=== PATIENT | male | born 1965 | race Caucasian/White ===

== ENCOUNTER → 2017-11-17 09:51 | Outpatient (CLI) | payer OTHER, SELFPAY ==
[2017-11-17 11:55] LABS: Absolute Lymphocyte Count 2.09 X10^3/ul (0.83-4.51); Absolute Neutrophil Count 6.1 X10^3/uL (2.0-7.7); Basophil# 0.07 X10^3/uL; Basophil% 0.7 % (0-1); Eosinophil# 0.29 X10^3/uL; Eosinophils% 3.1 % (0-5); Hematocrit 50.3 % (40-54); Hemoglobin 16.4 g/dl (13.0-16.5); Lymphocyte # 2.09 X10^3/ul (4.0); Lymphocyte % 22.4 % (19-41); Mean Corp Hgb Conc 32.6 g/gl (32-36); Mean Corpuscular Hgb 32.1 pg (27.0-32.0); Mean Corpuscular Volume 98.4 fL (80-94); Mean Platelet Vol. 10.6 fl (6.2-12.0); Monocyte% 7.5 % (0-10); Neutrophil % 65.3 % (47-70); POSITIVE COUNT NO; POSITIVE DIFFERENTIAL NO; POSITIVE MORPHOLOGY NO; Platelet Count 256 K/mm3 (150-450); RBC Distribution Width CV 13.8 % (11.6-14.6); RBC Distribution Width SD 49.4 fl (35.1-43.9); Red Blood Count 5.11 M/mm3 (4.6-6.2); White Blood Count 9.3 K/mm3 (4.4-11.0)
[2017-11-17 12:12] LABS: Color, Urine Yellow (Yellow); Glucose, Dipstick Normal (Normal); Ketone-Dipstick Negative (Negative); Leukocyte Esterase-Dipstick Negative /ul (Negative); Nitrite-Dipstick Negative (Negative); Occult Blood-Urine 10 /ul (Negative); Protein-Dipstick Negative (Negative); Urine Bilirubin Dipstick Negative (Negative); Urine Clarity Clear (Clear); Urine Urobilinogen Normal (Normal)
[2017-11-17 12:31] LABS: ALB/GLOB Ratio 0.9 RATIO (0.9-2.4); AST(SGOT) 28 U/L (15-37); Alanine Aminotransfer ALT/SGPT 45 U/L (16-61); Albumin, Serum 3.8 g/dL (3.2-5.0); Alkaline Phosphatase 90 U/L (45-117); Anion Gap 10 (5-15); BUN 22 mg/dL (7-18); BUN/Creat Ratio 23.2 RATIO (10-20); Calcium,Total 9.1 mg/dL (8.5-10.1); Chloride 106 mmol/L (98-107); Cholesterol 162 mg/dL (200); Creatinine, Serum 0.95 mg/dL (0.70-1.30); EST Glomerular Filtration Rate 88 mL/min (>60); Est Glom Filt Rate - Afr Amer 107 mL/min (>60); Globulin 4.1 g/dL (2.2-4.2); Glucose 86 mg/dL (74-106); High Density Lipoprotein 31 mg/dL; PSA,Total - Annual Screen 0.66 ng/mL (0.00-4.00); Protein, Total 7.9 g/dL (6.4-8.2); Sodium Level 142 mmol/L (136-145); Triglycerides 129 mg/dL; Very Low Density Lipoprotein 26 mg/dL (5-40)
[2017-11-21 08:10] LABS: Testosterone, Total 208 ng/dL (264-916)
== END ==
PROVIDERS: Family Provider Family Medicine; PCP Family Medicine; Visit Provider Family Medicine
DX: Z00.00 Encounter for general adult medical examination without abnormal findings (principal); I10 Essential (primary) hypertension; E78.5 Hyperlipidemia, unspecified; E29.1 Testicular hypofunction; Z12.5 Encounter for screening for malignant neoplasm of prostate
CPT/HCPCS: 36415; 80053; 80061; 81002; 84153; 84402; 84403; 85025; G0103

== ENCOUNTER → 2018-07-15 | Outpatient (CLI) | payer OTHER, SELFPAY ==
[2018-07-15 12:48] LABS: AST(SGOT) 27 U/L (15-37); Alanine Aminotransfer ALT/SGPT 39 U/L (16-61); Albumin, Serum 3.6 g/dL (3.2-5.0); Alkaline Phosphatase 96 U/L (45-117); Bilirubin, Direct 0.07 mg/dL (0.00-0.30); Cholesterol 139 mg/dL (200); Globulin 4.2 g/dL (2.2-4.2); High Density Lipoprotein 30 mg/dL; Protein, Total 7.8 g/dL (6.4-8.2); Triglycerides 108 mg/dL; Very Low Density Lipoprotein 22 mg/dL (5-40)
[2018-07-18 14:06] LABS: Testosterone, Free 6.56 ng/dL (5.00-21.00)
[2018-07-19 08:23] LABS: Testosterone, % Free 2.41 % (1.50-4.20); Testosterone, Total 272 ng/dL (264-916)
== END | disposition home or self-care (01) ==
LOC: MTLAB 09:32
PROVIDERS: Family Provider Family Medicine; PCP Family Medicine; Referring Provider Family Medicine; Visit Provider Family Medicine
DX: I10 Essential (primary) hypertension (principal); E78.5 Hyperlipidemia, unspecified; E29.1 Testicular hypofunction
CPT/HCPCS: 36415; 80061; 80076; 84402; 84403

== ENCOUNTER 2018-08-22 12:34 | Inpatient (IN) | payer OTHER, SELFPAY ==
[2018-08-22] VITALS (27 sets, daily range): BP systolic 98–155; BP diastolic 52–92; PULSE 79–111; RESP 17–32; TEMP 36.6–36.8; O2SAT 94–99; BMI 47.1; BMI 45.4
--- NOTE | 2018-08-22 12:54 | RAD_ITS ---
STUDY: X-RAY CHEST REASON FOR EXAM: Male, 53 years old. Chest pain TECHNIQUE: AP COMPARISON: None. FINDINGS: EKG leads project over the chest. The lungs are clear but under expanded. There is no demonstrated pleural abnormality. Normal size heart. Normal mediastinum and suresh. Normal visualized pulmonary arteries. Normal visualized aortic arch and descending thoracic aorta. Normal visualized thoracic spine. Normal visualized ribs, clavicles, and shoulders. There is no demonstrated abnormality of the visualized soft tissue structures of the upper abdomen. RAD/Chest 1 View (Portable) IMPRESSION: Nonacute portable x-ray examination of the chest. Electronically Signed: Heladio Candelario MD at 13:41 EDT , Service support ,
--- NOTE | 2018-08-22 12:54 | EKG12_ITS ---
Test Reason : AM Blood Pressure : / mmHG Vent. Rate : 097 BPM Atrial Rate : 097 BPM P-R Int : 182 ms QRS Dur : 092 ms QT Int : 360 ms P-R-T Axes : 054 017 -04 degrees QTc Int : 457 ms Normal sinus rhythm Inferior infarct , age undetermined , cannot be excluded Abnormal ECG Confirmed by RAQUEL THOMPSON, FELICITY ([id number]), restaurant expeditor OLIVIA VASQUES ([id number]) on 08/26/2018 12:45:59 PM Referred By: CECELIA Confirmed By:FELICITY GARCÍA MD
[2018-08-22] MEDS: Nitroglycerin Oint 1 INCH PACKET TRANSDERM. (12:58)
[2018-08-22] MEDS: 0.9% Normal Saline 1,000 ML 150 ML IV (13:04)
[2018-08-22 13:18] LABS: Absolute Lymphocyte Count 1.69 X10^3/ul (0.83-4.51); Absolute Neutrophil Count 9.6 X10^3/uL (2.0-7.7); Basophil# 0.05 X10^3/uL; Basophil% 0.4 % (0-1); Eosinophil# 0.12 X10^3/uL; Hematocrit 53.6 % (40-54); Hemoglobin 17.6 g/dl (13.0-16.5); Lymphocyte # 1.69 X10^3/ul (4.0); Lymphocyte % 13.7 % (19-41); Mean Corp Hgb Conc 32.8 g/gl (32-36); Mean Corpuscular Hgb 32.5 pg (27.0-32.0); Mean Corpuscular Volume 99.1 fL (80-94); Mean Platelet Vol. 10.2 fl (6.2-12.0); Monocyte# 0.83 X10^3/uL; Monocyte% 6.7 % (0-10); Neutrophil # 9.62 X10^3/uL (2.7-7.7); Neutrophil % 77.7 % (47-70); Platelet Count 227 K/mm3 (150-450); RBC Distribution Width CV 14.9 % (11.6-14.6); RBC Distribution Width SD 53.9 fl (35.1-43.9); Red Blood Count 5.41 M/mm3 (4.6-6.2); White Blood Count 12.4 K/mm3 (4.4-11.0)
[2018-08-22 13:19] LABS: POSITIVE COUNT NO; POSITIVE DIFFERENTIAL NO; POSITIVE MORPHOLOGY NO
--- NOTE | 2018-08-22 13:20 | ED.DCSUM_ITS ---
- ER Visit Summary Date of Service: 08/22/18 Chief Complaint: [Chest pain] History of Present Illness: The patient is a 53 M [presents to the emergency department with complaint of chest pain that started this morning around 7 AM. Patient described a severe pain in the center of his chest that he felt short of breath with. Patient states that it was a tightness and just a hard pain. Patient at times has been having pain into his neck. Patient complains of exertional dyspnea. Patient's states that in the last 3 months has had multiple similar episodes like this. Patient does have a history of hypertension, high cholesterol, smoking history, and significant family history of heart disease and that his father at age of 54 of a heart attack. Patient denies recent travel or surgery. Patient states that this morning he was at a [employer] and they wanted to drive back home before coming to the emergency department. Patient last had a stress test about 3 years ago and was unremarkable.] Physical Examination: [HEENT-PERRLA, EOMI. Cranial nerves II through XII grossly intact. TMs clear. Mucous membranes moist. No adenopathy. Cardiovascular-regular rate and rhythm without murmur or ectopy Lungs-clear to auscultation, chest wall stable without crepitus or subcu emphysema Abdomen-normoactive bowel sounds, soft, nontender, no rebound or rigidity, no peritoneal signs. Extremities-intact ?4, normal range of motion, normal pulses, atraumatic] Test Results: [EKG obtain a regular sinus tachycardia with a ventricular rate of 113 bpm with questionable old inferior infarct. When compared with prior EKG from 2011 no significant new changes noted.] Chest x-ray was unremarkable. CBC with differential showed a white count of 12.4, hemoglobin 17.6, hematocrit 54, platelet 27. Chemistries unremarkable. Troponin 6.68. D-dimer was less than 0.27. Emergency Department Course and Treatment: [After discussion with cardiology patient was started on Brilinta as well as heparin drip and metoprolol.] Treatment Plan: [Admit for further work-up and treatment of non-ST elevation [place]] Disposition: [Admit] Impression: [Acute coronary syndrome Non-ST elevation [place]] This note was generated with [employer] software. It may contain incorrect words, spelling, and punctuation that were not noted in review of the chart prior to signing ED Disposition - Plan for ED Patient: Referrals: Roger Curtis MD [Primary Care Provider] -
[2018-08-22 13:29] LABS: D-Dimer Quantitative (DVT/PE) < 0.27 FEU/ug/m (0.27-0.49)
[2018-08-22 13:54] LABS: Anion Gap 5 (5-15); BUN 18 mg/dL (7-18); BUN/Creat Ratio 17.8 RATIO (10-20); Calcium,Total 8.6 mg/dL (8.5-10.1); Chloride 106 mmol/L (98-107); Creatinine, Serum 1.01 mg/dL (0.70-1.30); EST Glomerular Filtration Rate 82 mL/min (>60); Est Glom Filt Rate - Afr Amer 99 mL/min (>60); Estimated Creatinine Clearance 75.45 ml/min; Glucose 131 mg/dL (74-106); Potassium 4.2 mmol/L (3.5-5.1); Sodium Level 142 mmol/L (136-145)
--- NOTE | 2018-08-22 13:54 | ED.RN ---
lab resulted trop 6.68, physician notified
[2018-08-22] MEDS: Metoprolol Tartrate 25 MG Tablet PO ×2 (14:56→21:47)
[2018-08-22] MEDS: HEPARIN/D5w 25,000 UNITS 25,000 UNITS/250 ML IV.SOLN. 17 UNITS IV (14:56)
[2018-08-22] MEDS: TICAGRELOR 90 MG TABLET 180 MG PO (14:56)
[2018-08-22] MEDS: Heparin Injection (Vial) 5,000 UNIT/ML VIAL 10500 UNIT IV (14:56)
--- NOTE | 2018-08-22 15:06 | PCM.HP.STD ---
Problem List (1) NSTEMI (non-ST elevated myocardial infarction) Status: Acute History of Present Illness Date of Admission: 08/22/18 Chief Complaint: chest pain The patient is a 53 year old M presents with chest pain. Chest pain began yesterday, he was in a casino in [place]. Was diaphoretic and short of breath. Went back to his routine room and passed out per his 's description. Again recurred today and instead of going to the hospital locally would be brought over to [facility] [place] so they drove straight to. In the emergency room, patient was found to have an EKG that had some inferior Q waves but no other acute changes. D-dimer was normal, troponin was 6.68. Dr. Calvo, cardiology, was contacted and advised heparin drip process Balint on patient received 180 mg of Brilinta in the emergency room. Additionally he received nitroglycerin. Feeling better at this time. Patient states that he has been having some intermittent chest pain that is not necessarily extruded associated with exertion but far less severe. Has not sought attention for this previously. [] Past Medical History Medical History: Medical History (Last Updated 08/22/18 @ 15:08 by Akira Torres DO) RAMESH (obstructive sleep apnea) G47.33 HTN (hypertension) I10 Allergies No Known Allergies Allergy (Verified 08/22/18 12:42) Home Medications: Ambulatory Orders Medication Instructions Recorded Lisinopril/Hydrochlorothiazide 1 tab PO DAILY 08/22/18 [Lisinopril-Hctz 20-25 mg Tab] Naproxen 500 mg PO DAILY 08/22/18 Simvastatin 80 mg PO DAILY 08/22/18 Tamsulosin HCl [Flomax] 0.4 mg PO DAILY 08/22/18 traMADol [Ultram] 50 mg PO DAILY 08/22/18 Psychiatric History: No pertinent psych hx Smoking Status: Heavy Smoker (>10/day) Tobacco Use: Cigarettes - *Family History Maternal History Items: Cancer Paternal History Items: Heart Disease Review of Systems Constitutional: Reports: Malaise. Denies: Anorexia, Chills, Fever, Night Sweats Eyes: Denies: Blurred vision, Double vision HEENT: Denies: Head Aches, Sinus Congestion, Sinus Drainage Cardiovascular: Reports: Chest Pain, Edema Respiratory: Reports: Shortness of Breath. Denies: Cough, Sputum production Gastrointestinal: Reports: Nausea. Denies: Abdominal Pain, Vomiting Genitourinary: Denies: Dysuria Musculoskeletal: Denies: Joint Pain, Joint Tenderness Skin: Denies: Rash, Wounds Neurological: Denies: Numbness, Tingling, Focal weakness Psychiatric: Denies: Anxiety, Depression Endocrine: Denies: Change in Body Habitus, Heat/ Cold Intolerance Hematologic/ Lymphatic: Denies: Easy Bruising, Easy Bleeding, Hx of blood clot Comment: Patient states that he previously was getting some right-sided neck pain that would be associated with chest pain. A 10 point review of systems were negative except as mentioned in the history of present illness and the other review of systems. VTE Information - Inpt Only VTE Present on Admission: No VTE Mechan Device Prophylaxis: None VTE Pharm Prophylaxis ordered?: No Reason prophylaxis not ordered:: Procedure Not Indicated Patient Problems: Active and Suspected Problems NSTEMI (non-ST elevated myocardial infarction) (Acute) - Physical Exam General: Alert, Oriented x3, Cooperative, No apparent distress HEENT: Atraumatic, PERRLA, EOMI, Normocephalic Oral: Moist Mucosa, No Gingival or Mucosal Lesions/ Ulcerations Neck: No Nodes, Thyroid Normal Size and Texture Lungs: Clear to auscultation, Normal air movement, No rhonchi, No wheeze, No rales Cardiovascular: Regular rate, Regular Rhythm, Normal S1, Normal S2, No murmurs Abdomen: Bowel Sounds Present, Soft, Non Tender, Non-Distended, No Hepato-splenomegaly Extremities: No edema, No Calf Tenderness Skin: - - Rash on medial right leg with some superficial buenrostro. No active cellulitis Musculoskeletal: No Tenderness to Palpation of Joints or Extremities Neurological: Deep Tendon Reflexes 2+/4 and Symmetrical, Muscle tone normal, - - No clonus Psych/Mental Status: Normal Affect, Appropriate Vital Signs Temp Pulse Resp BP Pulse Ox 36.6 C 100 32 H 116/77 95 08/22/18 12:35 08/22/18 13:54 08/22/18 13:54 08/22/18 13:54 08/22/18 13:54 Oxygen Flow Rate (L/min) 2 Oxygen Delivery Method Nasal Cannula Weight: 132.4 kg Body Mass Index (BMI) 47.1 Laboratory Tests Past 24 Hrs 08/22/18 08/22/18 08/22/18 12:54 12:54 12:54 WBC 12.4 H RBC 5.41 Hgb 17.6 H Hct 53.6 MCV 99.1 H MCH 32.5 H MCHC 32.8 RDW 14.9 H RDW Differential 53.9 H Plt Count 227 MPV 10.2 Immature Gran % (Auto) 0.500 Neut % (Auto) 77.7 H Lymph % (Auto) 13.7 L Carlton % (Auto) 6.7 Eos % (Auto) 1.0 Baso % (Auto) 0.4 Absolute Neuts (auto) 9.6 H Absolute Lymphs (auto) 1.69 Total Counted Not Reportable D-Dimer Quant (PE/DVT) < 0.27 L Sodium 142 Potassium 4.2 Chloride 106 Carbon Dioxide 31.0 Anion Gap 5 BUN 18 Creatinine 1.01 Estim Creat Clear Calc 75.45 Est GFR (MDRD) Af Amer 99 Est GFR (MDRD) Non-Af 82 BUN/Creatinine Ratio 17.8 Glucose 131 H Calcium 8.6 Troponin I 6.680 H* EKG reviewed and showed normal sinus rhythm with inferior Q waves. No acute changes noted. Chest x-ray personally reviewed and showed poor story effort but no acute infiltrate nor edema. Possible cardiomegaly. Assessment/Plan All Active Problems NSTEMI (non-ST elevated myocardial infarction) (Acute) 1. Non-STEMI Patient is likely been having cardiac symptoms over the past month or so. Became worse last night. Heart score of 8 and a MARIO score of 3 Dr. Calvo has been contacted and advised heparin drip as well as Brilinta Patient is already on lisinopril with combination medication lisinopril HCTZ which will be continued. Patient received metoprolol in the emergency room and will continue with metoprolol 25 mg daily Patient already on atorvastatin 80 mg daily and will continue Cycle troponins. Check echocardiogram. Plan for left heart catheterization on August 24 unless symptoms worsen or his condition deteriorates then will be expedited at that time. 2. Hyperglycemia Blood sugar is 131 No known diabetes Given patient's risk factors, I will check an A1c and start patient on a sliding scale insulin with Accu-Cheks q. before meals and at bedtime 3. Hypertension Stable Continue his lisinopril/HCTZ 4. Obstructive sleep apnea Previously diagnosed but not treated Patient was to follow-up with Dr. Manzo as outpatient for further management 5. VTE prophylaxis: Low risk as patient is already anticoagulated on heparin. Whatever needs to be discontinued then risk factor stratification would actually be moderate risk and then either Lovenox or heparin would be indicated that time. Code Visit Inpatient E&M: 45829 Init Hosp L3
--- NOTE | 2018-08-22 15:08 | ECHOCS_ITS ---
Reason For Study: NSTEMI Procedure This was a 2D Doppler, Color Flow transthoracic echocardiogram. The study was technically difficult. Contrast injection was performed. Exam performed portable in patient room. Left Ventricle Normal LV size. Left ventricular systolic function is normal. The estimated ejection fraction is 70 %. Transmitral doppler flow suggestive of impaired relaxation of left ventricle. No regional wall motion abnormalities noted. Right Ventricle Normal RV size. Normal systolic function. Atria Normal left atrium. Normal right atrium. No doppler evidence for ASD. Mitral Valve There is no mitral annular calcification. Normal mitral valve. Mild (1+) eccentric mitral valve insufficiency. Tricuspid Valve Normal tricuspid valve. Trivial tricuspid valve insufficiency. Unable to estimate RV systolic pressure/pulmonary artery pressure due to technically difficult study. Aortic Valve Trisinus/trileaflet aortic valve. Normal aortic valve. Pulmonic Valve The pulmonic valve is not well visualized. Trivial pulmonic valve insufficiency. Great Vessels Normal sized aortic root. Pericardium/Pleural No pericardial effusion. Medication Diluted definity 2ml given slow IV push to enhance endocardial definition. MMode/2D Measurements & Calculations LVIDd: 4.8 cm IVSd: 1.3 cm Ao root diam: 3.8 cm LVIDs: 2.9 cm LVPWd: 1.2 cm LA dimension: 4.3 cm FS: 38.8 % Time Measurements MV dec time: 0.21 sec Doppler Measurements & Calculations MV E max wesley: 85.6 cm/sec Lat Peak E' Wesley: 9.2 cm/sec Med Peak E' Wesley: 8.5 cm/sec MV A max wesley: 104.3 cm/sec E/E' lat: 9.3 E/E' med: 10.1 MV E/A: 0.82 MV V2 max: 102.7 cm/sec MV P1/2t max wesley: 83.0 cm/sec Ao V2 max: 130.3 cm/sec MV max P.2 mmHg MV P1/2t: 53.9 msec Ao max P.8 mmHg MV V2 mean: 60.6 cm/sec MV mean P.7 mmHg MV dec slope: 451.6 cm/sec2 MV V2 VTI: 21.9 cm MVA(P1/2t): 4.1 cm2 LV V1 max: 124.3 cm/sec PA V2 max: 144.5 cm/sec LV V1 max P.2 mmHg Interpretation Summary The study was technically difficult. Contrast injection was performed. Left ventricular systolic function is normal. The estimated ejection fraction is 70 %. Mild (1+) eccentric mitral valve insufficiency. Trivial tricuspid valve insufficiency. Trivial pulmonic valve insufficiency. Unable to estimate RV systolic pressure/pulmonary artery pressure due to technically difficult study. Transmitral doppler flow suggestive of impaired relaxation of left ventricle Ordering Physician: Akira Torres Referring Physician: ADRIANA HAAS Performed By: Reji Toure RCS
[2018-08-22 15:51] LABS: Hemoglobin A1c 5.9 % (4.2-6.3)
--- NOTE | 2018-08-22 16:13 | EKG12_ITS ---
Test Reason : POST PCI Blood Pressure : / mmHG Vent. Rate : 090 BPM Atrial Rate : 090 BPM P-R Int : 186 ms QRS Dur : 092 ms QT Int : 362 ms P-R-T Axes : 057 020 -04 degrees QTc Int : 442 ms Normal sinus rhythm Inferior infarct , age undetermined , cannot be excluded Abnormal ECG Confirmed by RAQUEL THOMPSON, FELICITY ([id number]), market editor OLIVIA VASQUES ([id number]) on 08/26/2018 12:49:38 PM Referred By: KELSI Confirmed By:FELICITY GARCÍA MD
--- NOTE | 2018-08-22 16:49 | CON.PCM_ITS ---
Problem List (1) NSTEMI (non-ST elevated myocardial infarction) Status: Acute (2) HLD (hyperlipidemia) Status: Chronic (3) HTN (hypertension) Status: Chronic (4) Tobacco abuse Status: Chronic Reason for Consult Date of Consultation: 08/22/18 History of Present Illness: The patient is a 53 year old white male with a past medical history which is included underlying hyperlipidemia and hypertension who presents for evaluation of symptoms concerning for an accelerating angina pectoris with an acute coronary syndrome/non-ST segment elevation [place]. The patient has been having symptoms on and off for at least the last month. The symptoms have been at rest, at night, exertion. He is complained of chest tightness/pressure with associated shortness of breath/dyspnea, nausea, and diaphoresis. The symptoms have waxed and waned. He has not presented to his local physician or any emergency department for further evaluation. Yesterday he was at a casino in [place]. After yesterday evening's meal he had recurrent symptoms. He initially attributed his symptoms to indigestion. However the evening and night went on and into this morning he progressively worsened. His who is with him at this time states that he was holding his chest. She recommended they present to the local emergency department however he did not want to do so. He wanted to return to [place]. On the way to [place] he stopped to get something to eat at [facility]. He continued to have symptoms. By the time he arrived in [place] his recommended they go straight to the emergency department for further evaluation. In the emergency department he was noted to have an abnormal troponin I level of approximately 6.7. His initial ECG demonstrated sinus tachycardia with possible left atrial enlargement with an inferior IN pattern of indeterminate age. He had taken aspirin on his way to the hospital. He was treated medically with Brilinta, Nitropaste, oral metoprolol, and IV heparin. He had a repeat ECG which demonstrated similar type changes. He was placed in the PCU for further evaluation care. In the PCU he has continued to complain of chest tightness. He states overall he has not noted recurrent acute dyspnea, nausea, or diaphoresis. He had a repeat troponin I level which was reported at 12.9. His repeat ECG demonstrated similar type findings. He has denied acute orthopnea or PND or worsening peripheral pitting edema. There has been no near syncope or syncope reported. He claims to have never been diagnosed with any additional cardiovascular disease. He had an exercise tolerance test performed on 11-05-13. At that time he exercised on a Jeremy protocol for 8 minutes achieving 87% predicted maximal hear t rate with a peak blood pressure of 130/70 mmHg. He had no electrocardiographic changes or dysrhythmias reported. His nuclear imaging at the time was reported as negative. His gated LVEF was reported at 60%. Since admission he has also had a d-dimer which was negative. His chest x-ray was performed and reported no acute cardiopulmonary disease process. [] Past Medical History Allergies/Adverse Reactions: Allergies No Known Allergies Allergy (Verified 08/22/18 12:42) Home Medications: Ambulatory Orders Medication Instructions Recorded Lisinopril/Hydrochlorothiazide 1 tab PO DAILY 08/22/18 [Lisinopril-Hctz 20-25 mg Tab] Naproxen 500 mg PO DAILY 08/22/18 Simvastatin 80 mg PO QHS 08/22/18 Tamsulosin HCl [Flomax] 0.4 mg PO DAILY 08/22/18 Testosterone Cypionate 200 mg IM Q14D 08/22/18 traMADol [Ultram] 50 mg PO DAILY 08/22/18 Past Medical History (Chronic Problems): Chronic Problems (Last Updated 08/22/18 @ 15:08 by Akira Torres DO) HLD (hyperlipidemia) (Chronic) HTN (hypertension) (Chronic) Tobacco abuse (Chronic) Psychiatric History: No pertinent psych hx - *Family History Maternal History Items: Cancer Paternal History Items: Heart Disease Lives: Spouse/ Significant Other Smoking Status: Heavy Smoker (>10/day) Tobacco Use: Cigarettes Alcohol: Occasional Drugs: None Review of Systems - Review of Systems General: Denies: Fever, Night Sweats, Fatigue Cardiovascular: Reports: Chest Discomfort, Chest Discomfort at Rest, Chest Discomfort with Exertion, Shortness of Breath, Shortness of Breath at Rest, Shortness of Breath with Exertion, - - Diaphoresis. Denies: Orthopnea, PND, Peripheral Edema, Palpitations, Dizziness, Near Syncope, Syncope Respiratory: Reports: Shortness of Breath. Denies: Cough, Sputum Production, Hemoptysis Gastrointestinal: Reports: Nausea. Denies: Hematemesis, Hematochezia, Melena Genitourinary: Denies: Dysuria, Hematuria Skin: Denies: Rash Subjectve: This is a 53-year-old white male who the appearance of being uncomfortable in bed at this time. Objective: Vital Signs Temp Pulse Resp BP Pulse Ox 98.1 F 95 18 127/65 H 95 08/22/18 15:11 08/22/18 15:11 08/22/18 15:11 08/22/18 15:13 08/22/18 16:30 Oxygen Flow Rate (L/min) 1 Oxygen Delivery Method Nasal Cannula Weight: 290 lb 2.053 oz Body Mass Index (BMI) 45.4 General: Awake, Alert, Oriented x 3, Cooperative, No Acute Distress, Obese HEENT: Atraumatic, Normocephalic, PERRL, EOMI, Sclera Non Icteric Oral: Moist Mucosa Neck: Supple, Good ROM, No JVD Lungs: Clear to auscultation Cardiovascular: Regular Rhythm, Normal S1, Normal S2 Vascular: No Carotid Bruits Abdomen: Bowel Sounds Present, Soft, Non Tender Extremities: No Cyanosis, No Clubbing, Trace RLE Edema, Trace LLE Edema Neurological: No Focal Motor or Sensory Deficit Psych/Mental Status: Appropriate 08/22/18 12:54: WBC 12.4 H, RBC 5.41, Hgb 17.6 H, Hct 53.6, MCV 99.1 H, MCH 32.5 H, MCHC 32.8, RDW 14.9 H, RDW Differential 53.9 H, Plt Count 227, MPV 10.2, Immature Gran % (Auto) 0.500, Neut % (Auto) 77.7 H, Lymph % (Auto) 13.7 L, Terry % (Auto) 6.7, Eos % (Auto) 1.0, Baso % (Auto) 0.4, Absolute Neuts (auto) 9.6 H, Total Counted Not Reportable 08/22/18 12:54: Sodium 142, Potassium 4.2, Chloride 106, Carbon Dioxide 31.0, Anion Gap 5, BUN 18, Creatinine 1.01, Est GFR (MDRD) Af Amer 99, Est GFR (MDRD) Non-Af 82, BUN/Creatinine Ratio 17.8, Glucose 131 H, Calcium 8.6, Troponin I 6.680 H* 08/22/18 12:54: D-Dimer Quant (PE/DVT) < 0.27 L 08/22/18 12:54: Hemoglobin A1c 5.9 08/22/18 15:35: Troponin I 12.900 H* Rhythm: Sinus rhythm EKG: As noted above Stress Test: As noted above CXR: As noted above Assessment/Plan 1. Worsening angina pectoris/unstable angina/acute coronary syndrome/non-ST segment elevation IN At the present time the patient presents with findings of worsening angina pectoris/unstable angina pectoris and objective findings compatible with acute coronary syndrome/non-ST segment elevation IN. The patient has been placed in the PCU. He has continued to be followed by cardiac rhythm monitoring, laboratory studies, and ECG. He has been placed on medical management which has included antiplatelet therapy, anticoagulant therapy, nitrates, and beta blockers in addition to his lowering therapy and antihypertensive therapy. He continues with ongoing chest discomfort which he describes as chest tightness despite the aforementioned measures. At the present time status post review of his case it was recommended the patient be considered for cardiac catheterization sooner than later. The procedure and risks were discussed with him and he was agreeable to this approach. The patient's case is also been discussed with Dr. Carpenter of the interventional section of the [facility]. He agreed with the aforementioned evaluation and care plan. 2. Hyperlipidemia The patient will continue lipid-lowering therapy. 3. Hypertension The patient will continue and hypertensive therapy with adjustment as deemed appropriate. 4. Tobacco abuse The patient has been counseled on the necessity to discontinue his tobacco use. Comment: The patient's case is also been discussed with the patient's spouse as well as previously discussed with the [facility] emergency department staff. This note was generated with [employer]ut[employer] software. It may contain incorrect words, spelling, and punctuation that were not noted in checking the note before signing.
--- NOTE | 2018-08-22 17:01 | NURSING ---
The same bag of IV heparin that was started in ER, continues to infuse at 17ml/hr as per order.
[2018-08-22] MEDS: Nitroglycerin Infusion 250 ML 3 MG CONT INF (17:11)
--- NOTE | 2018-08-22 17:15 | NURSING ---
IV heparin discontinued at this time per verbal order from dr gee.
[2018-08-22 17:26] LABS: Bedside Glucose 103 mg/dL (70-110)
--- NOTE | 2018-08-22 19:43 | NURSING ---
REPORT CALLED TO KHADIJAH IN ICU
--- NOTE | 2018-08-22 19:51 | CL.D_ITS ---
Patient Name: ARIELLA SIMMONS Study Date: 08/22/2018 Performing: Nazario Calvo MD Ht: 67 inches 170 cm : 1965 Wt: 291.4 lbs 132 kg Age: 53 Gender: male BSA: 2.37 PROCEDURE(S) PERFORMED [id number] W OR WO PTCA, SINGLE CORONARY ARTERY CLINICAL PROFILE AND INDICATIONS Indications: Worsening Angina, ACS <= 24 hrs Heart Failure: None Stress/Imaging Stress/Image Study Performed: No Angina Classification Anginal Classification w/in 2 Weeks: CCS IV CAD Presentations: Non-STEMI. CONCLUSIONS Elevated Left Ventricular End Diastolic Pressure Normal LV size, wall motion,and systolic function LVEF: by LV gram 60 % Single vessel CAD of the LAD Comment: The cardiac catheterization procedure was started by Dr. Calvo. He obtained the initial vascular access and performed selective RCA arteriography. The remained of the cardiac catheterizatio n procedure was completed by Dr. Carpenter. He placed the long radial artery sheeth to provide suppor t to allow him to perform LCA arteriography and the left ventriculogram. RECOMMENDATIONS Risk factor modification Medical therapy Referred for immediate PCI DESCRIPTION OF PROCEDURE The patient arrived to the procedure lab. The risks and benefits of the procedure as well as a full d escription of our services here and current unavailability of surgical backup were fully explained to the patient and/or their significant other prior to the catheterization. The Timeout was completed, verifying the correct patient and procedure. The patient's procedural site was prepped and draped in the usual fashion. Local anesthetic was given subcutaneously to right radial region with Lidocaine 2% . Using a modified Seldinger technique, arterial access was obtained via the right radial artery, a 6 Fr sheath was inserted. Right Coronary Artery selective angiography was then performed in multiple v iews using a 5 Fr. JR 4 catheter. Left Coronary Artery selective angiography was performed in multipl e views using a 5 Fr. 4.0 Hobgood catheter, unsuccessful. Left Coronary Artery selective angiography wa s performed in multiple views using a 5 Fr. 4.0 Hobgood catheter, unsuccessful. Left Coronary Artery selective angiography was performed in multiple views using a 5 Fr. JL3.5 catheter. L eft Ventriculography was performed in HOUSER projection using a 5 Fr. Pigtail catheter. LV to AO pullbac k pressures were then recorded.The arterial sheath was pulled and a TR Band was applied for hemostasi s, 11cc of air CORONARY ANGIOGRAPHY DOMINANCE: Right Dominant LEFT HEART ASSESSMENT Left Ventricular Ejection Fraction: by LV Gram 60 % Normal LV wall motion Elevated Left Ventricular End Diastolic Pressure LVEDP: 17 mmHg LEFT MAIN: Angiographically normal LEFT ANTERIOR DESCENDING ARTERY: PROX LAD: Eccentric: Hazy: 50 - 75 % Stenosis CIRCUMFLEX ARTERY: Angiographically normal RIGHT CORONARY ARTERY: Angiographically normal VALVE FINDINGS: Normal Aortic Valve function Normal Mitral Valve function AORTIC ROOT: Angiographically normal COMPLICATIONS No Complications PROCEDURE MEDICATIONS Versed 1 mg IV Fentanyl 50 mcg IV Versed 1 mg IV Fentanyl 50 mcg IV Oxygen: 2 L/min via nasal cannula Oxygen: 3 L/min via nasal cannula Heparin diluted in 23cc Heparinized saline. Patient given 10cc IA of this solution. 08/22/2018 18:04: 42 Heparin diluted in 23cc Heparinized saline. Patient given 10cc IA of this solution. 08/22/2018 18:04: 42 Heparin 6000 unit(s) IV 08/22/2018 19:20:17 Nitro glycerin 25mg / 250ml D5W @ 5 mcg/min IV continued 08/22/2018 17:50:05 Nitro glycerin 25mg / 250ml D5W @ 0 mcg/min discontinued 08/22/2018 18:09:29 Verapamil 2.5mg, Ntg 100mcgs, 2000 units of Heparin diluted in 23cc Heparinized saline. Patient give n 10cc IA of this solution. 08/22/2018 18:04:42 Verapamil 2.5mg, Ntg 100mcgs, 2000 units of Heparin diluted in 23cc Heparinized saline. Patient give n 10cc IA of this solution. 08/22/2018 18:04:42 SUMMARY OF HEMODYNAMIC DATA Time AIR REST ECG 17:46:49 AO 87/62 (70) SA 18:09:11 AO 75/57 (65) 18:38:14 LV 113/2, 18 18:43:21 LV 110/1, 17 18:43:27 LVp 97/0, 10 18:43:54 AOp 99/68 (82) 18:43:59 LV 112/6, 19 19:14:26 LV 119/5, 21 19:14:33 LVp 95/5, 21 19:20:09 AOp 99/68 (83) 19:20:15 RM AIR REST 19:39:13 Signed By Nazario Calvo MD On 08/23/2018 9:33:56 AM Signed By Nazario Calvo MD On 08/22/2018 19:50:16 Nazario Calvo MD
--- NOTE | 2018-08-22 19:57 | CL.I_ITS ---
Patient Name: ARIELLA SIMMONS Study Date: 08/22/2018 Performing: Anam Carpenter MD Ht: 67 inches 170 cm : 1965 Wt: 291.4 lbs 132 kg Age: 53 Gender: male BSA: 2.37 PROCEDURE(S) PERFORMED [id number] W OR WO PTCA, SINGLE CORONARY ARTERY CLINICAL PROFILE AND CO-MORBIDITIES Indications: Worsening Angina, ACS <= 24 hrs Heart Failure: None Stress/Imaging Stress/Image Study Performed: No Angina Classification Anginal Classification w/in 2 Weeks: CCS IV CAD Presentations: Non-STEMI. CONCLUSIONS Successful PCI with Drug eluting stent and PTCA to the pLAD RECOMMENDATIONS LUCY Mullen for at least 12 months Follow up with Dr. Calvo Routine post interventional care DESCRIPTION OF PROCEDURE The patient arrived to the procedure lab. The risks and benefits of the procedure as well as a full d escription of our services here and current unavailability of surgical backup were fully explained to the patient and/or their significant other prior to the catheterization. The Timeout was completed, verifying the correct patient and procedure. The patient's procedural site was prepped and draped in the usual fashion. Local anesthetic was given subcutaneously to right radial region with Lidocaine 2% Using a modified Seldinger technique,arterial access was obtained via the right radial artery, a 6Fr sheath was inserted. Right Coronary Artery selective angiography was then performed in multiple view s using a 5 Fr. JR 4 catheter. Left Coronary Artery selective angiography was performed in multiple v iews using a 5 Fr. 4.0 Salmon catheter, unsuccessful. Left Coronary Artery selective angiography was p erformed in multiple views using a 5 Fr. 4.0 Salmon catheter, unsuccessful. Left Coronary Artery selective angiography was performed in multiple views using a 5 Fr. JL3.5 catheter. Left Ventr iculography was performed in HOUSER projection using a 5 Fr. Pigtail catheter. LV to AO pullback pressur es were then recorded. XB3 Guide catheter was inserted and engaged into the LCA. BMW Guide wire was advanced to the LAD. 4x12 Synergy Drug Eluting stent was inserted. Drug Eluting stent was advanced across the lesion in t he LAD, proximal. Angiogram performed post stent deployment. 5x8 NC Emerge Balloon catheter was inser sophie. Balloon catheter was inserted post stent. The arterial sheath was pulled and a TR Band was michael lied for hemostasis, 11cc of air INTERVENTION INFORMATION LESION SITE: LAD (Proximal) Lesion Complexity: High/C, chronic total occlusion: No, lesion at bifurcation: No, thrombus present: No, lesion length: 10 mm, culprit lesion: Yes, Previously treated lesion: No Pre Stenosis: 70 % Pre intervention MARIO flow: 3 PROCEDURE: Drug Eluting Stent with post dilatation Post Stenosis: 0 % Post intervention MARIO flow: 3 Lesion Devices: Cordis 6 Fr XB3.0 100cm Guide Catheter Briseno .014 BMW [place] Straight 190cm Olaf Sci Synergy MR KITTY 4.00x12 Olaf Sci NC EMERGE MR 5.00x08 BALLOON COMPLICATIONS No Complications PROCEDURE MEDICATIONS Versed 1 mg IV Fentanyl 50 mcg IV Versed 1 mg IV Fentanyl 50 mcg IV Oxygen: 2 L/min via nasal cannula Oxygen: 3 L/min via nasal cannula Heparin diluted in 23cc Heparinized saline. Patient given 10cc IA of this solution. 08/22/2018 18:04: 42 Heparin diluted in 23cc Heparinized saline. Patient given 10cc IA of this solution. 08/22/2018 18:04: 42 Heparin 6000 unit(s) IV 08/22/2018 19:20:17 Nitro glycerin 25mg / 250ml D5W @ 5 mcg/min IV continued 08/22/2018 17:50:05 Nitro glycerin 25mg / 250ml D5W @ 0 mcg/min discontinued 08/22/2018 18:09:29 Verapamil 2.5mg, Ntg 100mcgs, 2000 units of Heparin diluted in 23cc Heparinized saline. Patient give n 10cc IA of this solution. 08/22/2018 18:04:42 Verapamil 2.5mg, Ntg 100mcgs, 2000 units of Heparin diluted in 23cc Heparinized saline. Patient give n 10cc IA of this solution. 08/22/2018 18:04:42 SUMMARY OF HEMODYNAMIC DATA Time AIR REST ECG 17:46:49 AO 87/62 (70) SA 18:09:11 AO 75/57 (65) 18:38:14 LV 113/2, 18 18:43:21 LV 110/1, 17 18:43:27 LVp 97/0, 10 18:43:54 AOp 99/68 (82) 18:43:59 LV 112/6, 19 19:14:26 LV 119/5, 21 19:14:33 LVp 95/5, 21 19:20:09 AOp 99/68 (83) 19:20:15 RM AIR REST 19:39:13 Signed By Anam Carpenter MD On 08/22/2018 19:56:24 Anam Carpenter MD
[2018-08-22] MEDS: 0.9% Normal Saline 1,000 ML 100 ML IV (20:00)
--- NOTE | 2018-08-22 20:00 | EKG12_ITS ---
Test Reason : CP ADMISSION Blood Pressure : / mmHG Vent. Rate : 089 BPM Atrial Rate : 089 BPM P-R Int : 186 ms QRS Dur : 092 ms QT Int : 360 ms P-R-T Axes : 046 022 002 degrees QTc Int : 438 ms Normal sinus rhythm Possible Left atrial enlargement Inferior infarct , age undetermined , cannot be excluded Abnormal ECG Confirmed by RAQUEL THOMPSON, FELICITY ([id number]), editor magazine OLIVIA VASQUES ([id number]) on 08/26/2018 1:04:49 PM Referred By: MICHAEL Confirmed By:FELICITY GARCÍA MD
[2018-08-22] MEDS: TICAGRELOR 90 MG TABLET PO (21:47)
[2018-08-22] MEDS: Atorvastatin Calcium 40 MG Tablet PO (21:49)
[2018-08-22 22:00] LABS: Bedside Glucose 178 mg/dL (70-110)
[2018-08-23] VITALS (20 sets, daily range): BP systolic 103–133; BP diastolic 71–96; PULSE 73–110; RESP 16–31; TEMP 36.7–37.1; O2SAT 92–98
[2018-08-23 04:26] LABS: Absolute Lymphocyte Count 1.35 X10^3/ul (0.83-4.51); Absolute Neutrophil Count 8.1 X10^3/uL (2.0-7.7); Basophil# 0.04 X10^3/uL; Basophil% 0.4 % (0-1); Eosinophil# 0.23 X10^3/uL; Eosinophils% 2.1 % (0-5); Hematocrit 50.4 % (40-54); Hemoglobin 16.1 g/dl (13.0-16.5); Lymphocyte # 1.35 X10^3/ul (4.0); Lymphocyte % 12.3 % (19-41); Mean Corp Hgb Conc 31.9 g/gl (32-36); Mean Corpuscular Hgb 31.6 pg (27.0-32.0); Mean Corpuscular Volume 98.8 fL (80-94); Mean Platelet Vol. 10.1 fl (6.2-12.0); Monocyte# 1.15 X10^3/uL; Monocyte% 10.5 % (0-10); Neutrophil # 8.13 X10^3/uL (2.7-7.7); Neutrophil % 74.1 % (47-70); POSITIVE COUNT NO; POSITIVE DIFFERENTIAL NO; POSITIVE MORPHOLOGY NO; Platelet Count 200 K/mm3 (150-450); RBC Distribution Width CV 14.9 % (11.6-14.6)
[2018-08-23 04:52] LABS: AST(SGOT) 53 U/L (15-37); Alanine Aminotransfer ALT/SGPT 36 U/L (16-61); Alkaline Phosphatase 88 U/L (45-117); Anion Gap 7 (5-15); BUN 16 mg/dL (7-18); BUN/Creat Ratio 19.6 RATIO (10-20); Bilirubin, Direct 0.13 mg/dL (0.00-0.30); Calcium,Total 8.3 mg/dL (8.5-10.1); Chloride 109 mmol/L (98-107); Cholesterol 103 mg/dL (200); Creatinine, Serum 0.82 mg/dL (0.70-1.30); EST Glomerular Filtration Rate 105 mL/min (>60); Est Glom Filt Rate - Afr Amer 127 mL/min (>60); Estimated Creatinine Clearance 96.28 ml/min; Globulin 3.6 g/dL (2.2-4.2); Glucose 88 mg/dL (74-106); High Density Lipoprotein 28 mg/dL; Potassium 4.2 mmol/L (3.5-5.1); Protein, Total 6.6 g/dL (6.4-8.2); Sodium Level 143 mmol/L (136-145); Thyroid Stim Hormone (TSH) 0.73 uIU/mL (0.358-3.74); Triglycerides 115 mg/dL; Very Low Density Lipoprotein 23 mg/dL (5-40)
--- NOTE | 2018-08-23 05:55 | EKG12_ITS ---
Test Reason : CP Blood Pressure : / mmHG Vent. Rate : 113 BPM Atrial Rate : 113 BPM P-R Int : 172 ms QRS Dur : 096 ms QT Int : 312 ms P-R-T Axes : 052 012 004 degrees QTc Int : 427 ms Sinus tachycardia Possible Left atrial enlargement Inferior infarct , age undetermined Abnormal ECG When compared with ECG of 11-DEC-2010 18:16, Inferior infarct is now Present Confirmed by SAIRA THOMPSON, ALISHA ([id number]), image editor OLIVIA VASQUES ([id number]) on 09/01/2018 2:16:21 PM Referred By: JAMES/AP Confirmed By:ALISHA CHÁVEZ MD
[2018-08-23] MEDS: hydroCHLOROthiazide 25 MG Tablet PO (07:55)
[2018-08-23] MEDS: TICAGRELOR 90 MG TABLET PO ×2 (07:56→21:14)
[2018-08-23] MEDS: Lisinopril 20 MG Tablet PO (07:56)
[2018-08-23] MEDS: Tamsulosin HCl 0.4 MG Capsule PO (07:56)
[2018-08-23] MEDS: Metoprolol Tartrate 25 MG Tablet PO ×2 (07:56→21:14)
[2018-08-23 08:06] LABS: Bedside Glucose 89 mg/dL (70-110)
--- NOTE | 2018-08-23 09:34 | PN_ITS ---
Patient Problems: Active and Suspected Problems (Last Updated 08/22/18 @ 15:08 by Akira Torres DO) NSTEMI (non-ST elevated myocardial infarction) (Acute) Subjective: Follow-up on NSTEMI: Patient was seen and examined. He denied any chest pain or dizziness. Admitted last night with NSTEMI, status post cardiac cath, s/p stent to his LAD. No acute events overnight. Vitals/I&O's: Vital Signs Temp Pulse Resp BP Pulse Ox 98.4 F 86 24 H 124/94 H 96 08/23/18 04:00 08/23/18 09:00 08/23/18 09:00 08/23/18 09:00 08/23/18 09:00 Oxygen Flow Rate (L/min) 3 Oxygen Delivery Method Room Air Weight: 132 kg Body Mass Index (BMI) 45.4 Intake and Output for Last 24 Hours 08/21/18 08/22/18 08/23/18 23:59 23:59 23:59 Intake Total 926 / 926 954 / 954 Output Total 825 / 825 600 / 600 Balance 101 / 101 354 / 354 General: Alert, Oriented x3, Cooperative, No apparent distress - Obese, appears comfortable, not on oxygen, - HEENT: Atraumatic, PERRLA, EOMI, Normocephalic Oral: Moist Mucosa Neck: Supple Lungs: Clear to auscultation, Normal air movement Cardiovascular: Regular rate, No murmurs Abdomen: Bowel Sounds Present, Soft, Non Tender, Non-Distended, No Hepato- splenomegaly Extremities: No edema Skin: No rashes, No breakdown Musculoskeletal: No Tenderness to Palpation of Joints or Extremities Lymphatic: No Cervical, Supraclavicular, or Inguinal Adenopathy Neurological: Cranial nerves II-XII grossly intact, Neuro grossly intact Psych/Mental Status: Normal Affect, Appropriate Laboratory Results 08/22/18 12:54: WBC 12.4 H, RBC 5.41, Hgb 17.6 H, Hct 53.6, MCV 99.1 H, MCH 32.5 H, MCHC 32.8, RDW 14.9 H, RDW Differential 53.9 H, Plt Count 227, MPV 10.2, Immature Gran % (Auto) 0.500, Neut % (Auto) 77.7 H, Lymph % (Auto) 13.7 L, [place] % (Auto) 6.7, Eos % (Auto) 1.0, Baso % (Auto) 0.4, Absolute Neuts (auto) 9.6 H, Absolute Lymphs (auto) 1.69, Total Counted Not Reportable 08/22/18 12:54: Sodium 142, Potassium 4.2, Chloride 106, Carbon Dioxide 31.0, Anion Gap 5, BUN 18, Creatinine 1.01, Estim Creat Clear Calc 75.45, Est GFR (MDRD) Af Amer 99, Est GFR (MDRD) Non-Af 82, BUN/Creatinine Ratio 17.8, Glucose 131 H, Calcium 8.6, Troponin I 6.680 H* 08/22/18 12:54: D-Dimer Quant (PE/DVT) < 0.27 L 08/22/18 12:54: Hemoglobin A1c 5.9 08/22/18 15:35: Troponin I 12.900 H* 08/22/18 17:16: POC Glucose 103 08/22/18 21:53: POC Glucose 178 H 08/23/18 04:15: Sodium 143, Potassium 4.2, Chloride 109 H, Carbon Dioxide 27.0, Anion Gap 7, BUN 16, Creatinine 0.82, Estim Creat Clear Calc 96.28, Est GFR (MDRD) Af Amer 127, Est GFR (MDRD) Non-Af 105, BUN/Creatinine Ratio 19.6, Glucose 88, Calcium 8.3 L, Total Bilirubin 0.40, Direct Bilirubin 0.13, AST 53 H , ALT 36, Alkaline Phosphatase 88, Total Protein 6.6, Albumin 3.0 L, Globulin 3.6, Triglycerides 115, Cholesterol 103, LDL Cholesterol 52, VLDL Cholesterol 23, HDL Cholesterol 28 L, TSH 0.73 08/23/18 04:15: WBC 11.0, RBC 5.10, Hgb 16.1, Hct 50.4, MCV 98.8 H, MCH 31.6, MCHC 31.9 L, RDW 14.9 H, RDW Differential 54.0 H, Plt Count 200, MPV 10.1, Immature Gran % (Auto) 0.600, Neut % (Auto) 74.1 H, Lymph % (Auto) 12.3 L, [place] % (Auto) 10.5 H, Eos % (Auto) 2.1, Baso % (Auto) 0.4, Absolute Neuts (auto) 8.1 H, Absolute Lymphs (auto) 1.35, Total Counted Not Reportable 08/23/18 07:53: POC Glucose 89 Current Medications Acetaminophen (Tylenol) 650 mg PO Q6H PRN PRN PRN Reason: Mild pain 1-3/Temp > 100.7 F Albuterol Sulfate (Ventolin Aerosols) 2.5 mg INHALATION Q2H PRN PRN PRN Reason: SOB/Wheezing Aspirin (Aspirin, Baby) 81 mg PO DAILY@0800 [facility] Atorvastatin Calcium (Lipitor) 40 mg PO QHS [facility] Last Admin: 08/22/18 21:49 Dose: 40 mg Documented by: Atropine Sulfate () 0.5 mg IV UD PRN PRN Reason: HR <50 bpm Dextrose (D50w Syringe) 0 gm IV X1 PRN; Protocol PRN Reason: Hypoglycemia Docusate Sodium (Colace) 100 mg PO BID PRN PRN PRN Reason: Constipation Glucagon () 1 mg IM .X1 PRN PRN Reason: Hypoglycemia Heparin Sodium (Beef Lung) (Heparin 500 Unit/5 Ml (100/Ml)) 500 unit IV UD PRN PRN Reason: HEPARIN FLUSH Hydrochlorothiazide (Hctz) 25 mg PO DAILY [facility] Last Admin: 08/23/18 07:55 Dose: 25 mg Documented by: Sodium Chloride () 1,000 mls @ 0 mls/hr IV .Q0M FAY Sodium Chloride () 250 mls @ 15 mls/hr IV .[id number] PRN PRN Reason: SALINE FLUSH Insulin Human Lispro (Humalog Marlypen (Bkc)) 0 unit SC TIDAC [facility]; Protocol Last Admin: 08/23/18 07:54 Dose: Not Given Documented by: Labetalol HCl (Trandate) 5 mg IV X1 PRN PRN Reason: SBP > 160 when pulling sheath Stop: 08/24/18 19:50 Lisinopril (Zestril) 20 mg PO DAILY [facility] Last Admin: 08/23/18 07:56 Dose: 20 mg Documented by: Melatonin (Melatonin) 3 mg PO QHS PRN PRN PRN Reason: INSOMNIA Metoprolol Tartrate (Lopressor (Beta Mena)) 25 mg PO BID [facility] Last Admin: 08/23/18 07:56 Dose: 25 mg Documented by: Nicotine (Nicoderm Cq (Pbkc)) 21 mg TRANSDERM. DAILY [facility] Last Admin: 08/23/18 07:55 Dose: 21 mg Documented by: Nitroglycerin (Nitrostat) 0.4 mg SUBLINGUAL Q5M PRN PRN Reason: CARDIAC/CHEST PAIN Ondansetron HCl (Zofran) 4 mg IV Q8H PRN PRN PRN Reason: NAUSEA/VOMITING Sodium Chloride () 10 - 40 ml IV UD PRN PRN Reason: SALINE FLUSH Sodium Chloride () 500 ml IV BOLUS PRN PRN Reason: VASO-VAGAL PROTOCOL Tamsulosin HCl (Flomax) 0.4 mg PO DAILY@0830 [facility] Last Admin: 08/23/18 07:56 Dose: 0.4 mg Documented by: Throat Lozenges (Cepacol Sore Throat Lozenge) 1 lozenge MUCOUS MEM Q2H PRN PRN PRN Reason: Sore Throat/Cough Ticagrelor (Brilinta) 90 mg PO BID [facility] Last Admin: 08/23/18 07:56 Dose: 90 mg Documented by: Medical Necessity - Tobacco Use Smoking Status: Heavy Smoker (>10/day) Tobacco Use: Cigarettes Assessment/Plan All Active Problems (Last Updated 08/22/18 @ 15:08 by Akira Torres DO) NSTEMI (non-ST elevated myocardial infarction) (Acute) 53-year-old with past medical history of hypertension, hyperlipidemia comes in with chest pain and found to have NSTEMI. He underwent cardiac catheterization and is status post stent to his LAD. 1. NSTEMI, MARIO score 3, s/p cardiac cath, s/p KITTY to LAD, stable vitals, no events on telemetry, on aspirin, Brilinta, statin, lisinopril, metoprolol Continue to monitor on telemetry, further recommendations from cardiology. 2. Hypertension, on lisinopril, hydrochlorothiazide, metoprolol, continue same 3. Hyperlipidemia, on statin 4. BPH on Flomax 5. Morbid obesity, BMI 45.6, diet and exercise is recommended 6. DVT PPx- early ambulation Code Visit Inpatient E&M: 20596 Subs Hosp L2
--- NOTE | 2018-08-23 10:02 | PCM.PN.CARD ---
Subjectve: The patient is awake and alert. He denies any ongoing chest tightness since his cardiac catheterization/PCI procedure. He notes prior to his procedure, over the last month, he has been having right neck discomfort. He states since his procedure that symptom is absent as well. He notes overall he feels so much better now than he did prior to his procedure. Objective: Vital Signs Temp Pulse Resp BP Pulse Ox 98.4 F 86 24 H 124/94 H 96 08/23/18 04:00 08/23/18 09:00 08/23/18 09:00 08/23/18 09:00 08/23/18 09:00 Oxygen Flow Rate (L/min) 3 Oxygen Delivery Method Room Air Weight: 291 lb 0.163 oz Body Mass Index (BMI) 45.4 Intake and Output for Last 24 Hours 08/21/18 08/22/18 08/23/18 23:59 23:59 23:59 Intake Total 926 / 926 954 / 954 Output Total 825 / 825 600 / 600 Balance 101 / 101 354 / 354 General: Awake, Alert, Oriented x 3, Cooperative, No Acute Distress, Obese HEENT: Atraumatic, Normocephalic, PERRL, EOMI, Sclera Non Icteric Oral: Moist Mucosa Neck: Supple, Good ROM, No JVD Lungs: Clear to auscultation Cardiovascular: Regular Rhythm, Normal S1, Normal S2 Vascular: Normal Radial Pulses Abdomen: Bowel Sounds Present, Soft, Non Tender Extremities: Trace RLE Edema, Trace LLE Edema Neurological: No Focal Motor or Sensory Deficit Psych/Mental Status: Appropriate 08/22/18 12:54: WBC 12.4 H, RBC 5.41, Hgb 17.6 H, Hct 53.6, MCV 99.1 H, MCH 32.5 H, MCHC 32.8, RDW 14.9 H, RDW Differential 53.9 H, Plt Count 227, MPV 10.2, Immature Gran % (Auto) 0.500, Neut % (Auto) 77.7 H, Lymph % (Auto) 13.7 L, [place] % (Auto) 6.7, Eos % (Auto) 1.0, Baso % (Auto) 0.4, Absolute Neuts (auto) 9.6 H, Total Counted Not Reportable 08/22/18 12:54: Sodium 142, Potassium 4.2, Chloride 106, Carbon Dioxide 31.0, Anion Gap 5, BUN 18, Creatinine 1.01, Est GFR (MDRD) Af Amer 99, Est GFR (MDRD) Non-Af 82, BUN/Creatinine Ratio 17.8, Glucose 131 H, Calcium 8.6, Troponin I 6.680 H* 08/22/18 12:54: D-Dimer Quant (PE/DVT) < 0.27 L 08/22/18 12:54: Hemoglobin A1c 5.9 08/22/18 15:35: Troponin I 12.900 H* 08/23/18 04:15: Sodium 143, Potassium 4.2, Chloride 109 H, Carbon Dioxide 27.0, Anion Gap 7, BUN 16, Creatinine 0.82, Est GFR (MDRD) Af Amer 127, Est GFR (MDRD) Non-Af 105, BUN/Creatinine Ratio 19.6, Glucose 88, Calcium 8.3 L, Total Bilirubin 0.40, Direct Bilirubin 0.13, Triglycerides 115, Cholesterol 103, LDL Cholesterol 52, VLDL Cholesterol 23, HDL Cholesterol 28 L 08/23/18 04:15: WBC 11.0, RBC 5.10, Hgb 16.1, Hct 50.4, MCV 98.8 H, MCH 31.6, MCHC 31.9 L, RDW 14.9 H, RDW Differential 54.0 H, Plt Count 200, MPV 10.1, Immature Gran % (Auto) 0.600, Neut % (Auto) 74.1 H, Lymph % (Auto) 12.3 L, [place] % (Auto) 10.5 H, Eos % (Auto) 2.1, Baso % (Auto) 0.4, Absolute Neuts (auto) 8.1 H, Total Counted Not Reportable Rhythm: Sinus rhythm EKG: Sinus rhythm; inferior [place] of indeterminate age cannot be excluded; nonspecific T wave abnormality Medical Necessity - Tobacco Use Smoking Status: Heavy Smoker (>10/day) Tobacco Use: Cigarettes Assessment/Plan 1. Worsening angina pectoris/unstable angina/acute coronary syndrome/non-ST segment elevation [place]/CAD status post LAD PCI The patient appears to be symptomatically improved. He remains hemodynamically stable. He is continuing cardiac monitoring. He is continuing medical therapy with adjustment as deemed appropriate. He is pending further evaluation with a transthoracic echocardiogram to assess his overall left ventricular wall motion and systolic function. He will also need cardiac rehabilitation therapy. 2. Hyperlipidemia The patient will continue lipid-lowering therapy. 3. Hypertension The patient will continue and hypertensive therapy with adjustment as deemed appropriate. 4. Tobacco abuse The patient has been counseled on the necessity to discontinue his tobacco use. All, at the present time, the patient appears to be improved. He will be considered for transfer to the PCU for continued ongoing evaluation and care. Comment: The patient's case is also been discussed with the patient. This note was generated with [employer] dictation software. It may contain incorrect words, spelling, and punctuation that were not noted in checking the note before signing.
[2018-08-23] MEDS: Aspirin 81 MG TAB.CHEW PO (10:07)
[2018-08-23 11:21] LABS: Bedside Glucose 92 mg/dL (70-110)
[2018-08-23] MEDS: Atorvastatin Calcium 40 MG Tablet PO (21:14)
[2018-08-24] VITALS (9 sets, daily range): BP systolic 111–127; BP diastolic 59–75; PULSE 90–100; RESP 15–18; TEMP 36.6–36.9; O2SAT 94–96; BMI 45.5
[2018-08-24] MEDS: Metoprolol Tartrate 25 MG Tablet PO (08:23)
[2018-08-24] MEDS: Lisinopril 20 MG Tablet PO (08:23)
[2018-08-24] MEDS: Tamsulosin HCl 0.4 MG Capsule PO (08:23)
[2018-08-24] MEDS: TICAGRELOR 90 MG TABLET PO (08:23)
[2018-08-24] MEDS: Aspirin 81 MG TAB.CHEW PO (08:23)
[2018-08-24] MEDS: hydroCHLOROthiazide 25 MG Tablet PO (08:23)
--- NOTE | 2018-08-24 10:00 | EKG12_ITS ---
Test Reason : AM EKG Blood Pressure : / mmHG Vent. Rate : 099 BPM Atrial Rate : 099 BPM P-R Int : 178 ms QRS Dur : 090 ms QT Int : 338 ms P-R-T Axes : 051 028 006 degrees QTc Int : 433 ms Normal sinus rhythm Inferior infarct , age undetermined , cannot be excluded Poor R-wave progression Abnormal ECG Confirmed by RAQUEL THOMPSON, FELICITY ([id number]), make up editor OLIVIA VASQUES ([id number]) on 08/26/2018 12:36:13 PM Referred By: DR WEI Confirmed By:FELICITY GARCÍA MD
--- NOTE | 2018-08-24 10:50 | CASEMGMT ---
Living situation- SW met with patient and his . Introduced self and role at [facility]. Patient lives in a 2 story home with his . PCP: Dr Roger Curtis Specialists: None Pharmacy: [facility] DME: None ADL's/IADL's: Independent in all activities Past SNF/rehab: No Past HH: No LW: No POA: No Plan: Patient plans on returning home. He said he does not have prescription coverage through his insurance. His thinks he does. Patient said he gets his meds at [facility] and he gets a discount. Will watch for d/c meds to make sure they are affordable for patient. Camila MILIAN COMMERCIAL ACCOUNTANT
--- NOTE | 2018-08-24 11:01 | CRPHASE1 ---
Patient Communication Former Patient:: Phase I PHII Cardiac Rehab Discussed with Patient:: Yes Guide to Cardiac Rehab Given to Patient:: Yes Cardiac Rehab Facility Choice List Given to Patient:: Yes - [facility] Choice Program [facility] CR PHII:: Communication Given to CR Fiscal Economist:: Lino Carpenter PCP:: Roger Curtis Sessions:: 36 sessions - 3 days/wk, 12 weeks Risk Factors/Lifestyle Smoking Status: Current every day smoker Packs Smoked per Day: 1 Hx Hypertension: Yes - ON MEDS Hx Diabetes Mellitus Type 2: No Hx Obesity: Yes Height: 1.7 m Weight:: 131.6 kg BMI: 45.5 Stress: Long-standing ETOH: No Caffeine: Yes Substance Abuse: No Family History: Hypertension Laboratory Values: Cardiac Rehab Phase I Labs 5.9 % (4.2-6.3) 08/22/18 12:54 Triglycerides 115 mg/dL (-199) 08/23/18 04:15 Cholesterol 103 mg/dL (200) 08/23/18 04:15 52 mg/dL (0-130) 08/23/18 04:15 28 mg/dL (40-) L 08/23/18 04:15 Phase I Education Given On:: [place], Nutrition, Smoking cessation - GAVE HIS NAME TO MAY. Issues Affecting Care:: None Knowledge of Condition:: Yes Learning Preferences: Verbal Hospital Course Pain Description: Sharp Pain Intensity: 8 - 3 Cardiac Cath Date:: 08/22/18 Medical/Surgical History NM:: Yes Angina:: Yes Pulmonary:: Yes RAMESH:: Yes - BEING TEST LATER IN AUGUST Diabetes Type II:: No Hypertension:: Yes - ON MEDS Dyslipidemia:: Yes Discharge/Home/Social Eval Discharge Disposition: Home Marital Status: - Cardiac Rehabilitation Info Cardiac Rehabilitation Program Information: Cardiac Rehabilitation is important for patients like you who are recovering from a heart problem. Cardiac rehabilitation programs are recognized as integral to the continued care of the patient with coronary heart disease. The cardiac rehabilitation program is designed to optimize a patient's physical, psychological, and social functioning. Health critical care unit manager work in cardiac rehabilitation programs and assist you with getting the treatments you need to get stronger and healthier - like exercise, healthy eating habits, and medications. Cardiac rehabilitation has been show to help people with heart problems live longer and have better life enjoyment than people who do not go to cardiac rehabilitation. Please contact the Cardiac Rehabilitation Program at [facility] at in two weeks if you have not heard from them.
--- NOTE | 2018-08-24 11:06 | CRPH1.INSTRU ---
General Education CAD and cardiac anatomy and function:: Patient communicates acknowledgment Explanation of diagnoses and procedures:: Patient communicates acknowledgment Sign/Symptoms of [place]:: Patient communicates acknowledgment, Not instructed Antiplatelet therapy: Not instructed Emergency procedures and activation of EMS: Patient communicates acknowledgment Compliance of all prescribed medications: Needs reinforcement Smoking Patient Nicotine/Smoking Risk Factors Are:: Cigarettes Recommendations Include:: Smoking cessation strategies/Smoking packet, Participation in a smoking cessation program Nicotine/Smoking Response Code:: Patient communicates acknowledgment Dyslipidemia Patient Dyslipidemia Risk Factors Are:: Total Cholesterol - 103, Triglycerides - 115, HDL - 28, LDL - 23 Recommendations Include:: Lipid profile provided Dyslipidemia Response Code:: Patient communicates acknowledgment - ON MEDS Overweight/Obesity Patient Overweight/Obesity Risk Factors Are:: Overweight = 26-29 Overweight/Obesity:: Patient communicates acknowledgment Hypertension Recommendations Include:: Maintain BP <130/85 Hypertension:: Patient communicates acknowledgment - ON MEDS Heart Disease Patient Heart Disease Risk Factors Are:: Family history of heart disease < 65 years old Heart Disease Response Code:: Patient communicates acknowledgment Diabetes Patient Diabetes Risk Factors Are:: No documented hx of diabetes Metabolic Syndrome Patient Metabolic Syndrome Risk Factors Are [3 of 5]:: Hypertension Metabolic Syndrome Response Code:: Patient communicates acknowledgment Sedentary Patient Sedentary Risk Factors Are:: Lack of regular exercise Sedentary Response Code:: Patient communicates acknowledgment Stress Stress Response Code:: Patient communicates acknowledgment
--- NOTE | 2018-08-24 12:04 | PN.CARD_ITS ---
Subjectve: The patient states he continues to feel better overall. He has been up and ambulating. Objective: Vital Signs Temp Pulse Resp BP Pulse Ox 98.2 F 90 16 127/59 H 96 08/24/18 08:20 08/24/18 10:59 08/24/18 08:20 08/24/18 08:23 08/24/18 08:20 Oxygen Flow Rate (L/min) 3 Oxygen Delivery Method Room Air Weight: 290 lb 2.053 oz Body Mass Index (BMI) 45.4 Intake and Output for Last 24 Hours 08/22/18 08/23/18 08/24/18 23:59 23:59 23:59 Intake Total 926 / 926 2404 / 2604 200 / 200 Output Total 825 / 825 600 / 600 Balance 101 / 1804 / 2004 200 / 200 General: Awake, Alert, Oriented x 3, Cooperative, No Acute Distress, Obese HEENT: Atraumatic, Normocephalic, PERRL, EOMI, Sclera Non Icteric Oral: Moist Mucosa Neck: Supple, Good ROM, No JVD Lungs: Clear to auscultation Cardiovascular: Regular Rhythm, Normal S1, Normal S2 Vascular: No Carotid Bruits, Normal Radial Pulses Abdomen: Bowel Sounds Present, Soft, Non Tender Extremities: No edema Neurological: No Focal Motor or Sensory Deficit Psych/Mental Status: Appropriate Rhythm: Sinus rhythm EKG: Sinus rhythm; no new acute ECG changes ECHO: Pending Medical Necessity - Tobacco Use Smoking Status: Current every day smoker Tobacco Use: Cigarettes Assessment/Plan 1. Worsening angina pectoris/unstable angina/acute coronary syndrome/non-ST segment elevation [place]/CAD status post LAD PCI The patient appears to be symptomatically improved. He remains hemodynamically stable. He is continuing cardiac monitoring. He is continuing medical therapy with adjustment as deemed appropriate. He is pending further evaluation with a transthoracic echocardiogram to assess his overall left ventricular wall motion and systolic function. He will also need cardiac rehabilitation therapy. 2. Hyperlipidemia The patient will continue lipid-lowering therapy. 3. Hypertension The patient will continue and hypertensive therapy with adjustment as deemed appropriate. 4. Tobacco abuse The patient has been counseled on the necessity to discontinue his tobacco use. All, at the present time, the patient appears to be improved. If he remains stable and depending upon his transthoracic echocardiographic findings he may be able to be considered for release home with continued outpatient follow-up as noted above. Comment: The patient's case is also been discussed with the patient. This note was generated with [employer] dictation software. It may contain incorrect words, spelling, and punctuation that were not noted in checking the note before signing.
--- NOTE | 2018-08-24 13:26 | NURSING ---
wound photo: right medial lower leg
--- NOTE | 2018-08-24 13:54 | CASEMGMT ---
Addendum entered by Milind Ivy 08/24/18 15:57: 1500: Spoke with Dr Calvo re: pt's high co-pay. Dr Calvo states prefers for pt to be on the Brilinta for at least 30 days if possible and then he can discuss other affordable options with pt when he comes in for his follow-up appt. Spoke with pt and about [facility] RX assistance program for the Brilinta and they are agreeable to this. Discussed importance of taking Brilinta as prescribed and to make sure he talks with Dr Calvo about more affordable options when he goes in for the follow-up appt. Pt and made aware of importance of getting the new medication before running out of the Brilinta so that no doses are missed. Pt and voice understanding. Dr Mtz notified and e-scripted Brilinta to [facility] Retail pharmacy. BENJAMIN Jensen, made aware of need for [facility] Medication Assistance needed for Brilinta. Original Note: MARIEL LECHUGA NOTE: E-script has been sent to [facility] for Brilinta. Call placed to [facility] and Brilinta savings card applied. Pt's co-pay will be still be $169 per 30-day supply even with the savings card. To room to talk with pt and and they were made aware of co-pay. They state this is not affordable for them. Dr Mtz made aware and Dr Calvo paged. Clyde RED RN, CM
--- NOTE | 2018-08-24 14:05 | PCM.DC ---
- Discharge Diagnoses Current Active Problems: Current Active and Chronic Problems (Last Updated 08/22/18 @ 15:08 by Akira Torres DO) S/P coronary artery stent placement (Chronic ~08/22/18) PTCA/KITTY to prox LAD 08/22/18 Atherosclerotic heart disease of [place] coronary artery without angina pectoris (Chronic) NSTEMI (non-ST elevated myocardial infarction) (Acute) HLD (hyperlipidemia) (Chronic) HTN (hypertension) (Chronic) Tobacco abuse (Chronic) You will use the following diet at home:: Cardiac - low fat, low salt Your food should be the consistency of: Regular Your liquids should be the consistency of: Regular/Thin Discharge Activity: - - You may remove the dressing in 1 day. You may shower in 1 day. No sex for 10-14 days. Do not lift more than 10 pounds for the next 10-14 days. No strenuous activity. You may start a walking program and work up to 30 minutes daily 5-6 times a week. No hills. May shower in (days): 1 Call your doctor if you observe: Fever of 101 or Higher, Shortness of breath, Dizziness, Fainting spells, Swelling in the ankles, Chest pain, Calf discomfort, - - bleeding from the nose, mouth, penis, anus, large bruises Change Dressing in (Days):: 1 Instructions: Ticagrelor Oral tablet, Coronary Stents, Taking Blood Thinners After Percutaneous Coronary Intervention (PCI), Follow-up Appointment After Percutaneous Coronary Intervention (PCI), Lifestyle Management After Percutaneous Coronary Intervention (PCI), Exercising Safely After Percutaneous Coronary Intervention (PCI) Additional Instructions: I have given you a prescription for a nicotine patch. Testosterone and Nicotine is a potentially bad combination. Both of these things can increase the red blood cell count and when this happens it is call polycythemia. Polycythemia makes the blood thicker and it will clot more quickly than normal........causing strokes and heart attacks. It would be in your best interest to quit smoking. Allergies/Adverse Reactions: Allergies No Known Allergies Allergy (Verified 08/22/18 12:42) Medications to take at Discharge Lisinopril/Hydrochlorothiazide [Lisinopril-Hctz 20-25 mg Tab] 1 tab PO DAILY 08/22/18 Simvastatin 80 mg PO QHS 08/22/18 Tamsulosin HCl [Flomax] 0.4 mg PO DAILY 08/22/18 Testosterone Cypionate 200 mg IM Q14D 08/22/18 traMADol [Ultram] 50 mg PO DAILY 08/22/18 Aspirin [Aspirin, Baby] 81 mg PO DAILY@0800 tab.chew 08/24/18 Metoprolol Tartrate [Lopressor (beta jose luis)] 25 mg PO BID #60 tab 08/24/18 Nicotine [Nicoderm Cq] 21 mg TRANSDERM. DAILY #28 patch 08/24/18 Nitroglycerin (INPATIENT USE) [Nitrostat] 0.4 mg SUBLINGUAL Q5M PRN #1 bottle 08/24/18 Ticagrelor [Brilinta] 90 mg PO BID #60 tab 08/24/18 The following prescriptions were given: Ticagrelor [Brilinta] 90 mg PO BID #60 tab Transmission Status: Received by [facility] Metoprolol Tartrate [Lopressor (beta jose luis)] 25 mg PO BID #60 tab Transmission Status: Pending to [facility] Nicotine [Nicoderm Cq] 21 mg TRANSDERM. DAILY #28 patch Prescription Printed Nitroglycerin (INPATIENT USE) [Nitrostat] 0.4 mg SUBLINGUAL Q5M PRN #1 bottle PRN Reason: Cardiac/Chest Pain Transmission Status: Pending to [facility] Orders to be completed after discharge: Phase II, Outpatient Cardiac Rehab Location: None Selected Primary Care Physician: Roger Curtis MD [Primary Care Provider] - Please follow up with your Primary Care Physician in: 5-7 days Test Results: Test results from this visit will be discussed in further detail at your follow-up appointment, if applicable. Please Follow Up With: Nazario Calvo MD When: 1 week Proposed Discharge Date: 08/24/18
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
--- NOTE | 2018-08-24 14:20 | CASEMGMT ---
Addendum entered by Camila Dang 08/24/18 14:36: SW spoke with Betty in the pharmacy and they were able to use the 30 day free discount card for patient. Therefore, [facility] prescription assistance program is not needed. Camila SANCHEZ Original Note: SW utilized [facility] Prescription assistance program for Brillinta for patient. He has a high co-pay for the medication even with the discount card. MARIEL CM spoke with [employer] and it is preferred that the patient take Brillinta for 30 days after his heart attack. Once patient follows up with [employer] they can change the medication to something more affordable for patient. Camila SANCHEZ
== END 2018-08-24 15:16 | disposition home or self-care (01) | DRG 247 ==
LOC: ED 13:35 → PCU 14:33 → ICU 08-23 06:58 → PCU 08-23 23:29 → ICU 08-24 11:09 → PCU 08-24 11:09
PROVIDERS: Internal Medicine; Internal Medicine Cardiovascular Disease; Emergency Provider Emergency Medicine; Family Provider Family Medicine; PCP Family Medicine; Visit Provider Internal Medicine
DX: I21.4 Non-ST elevation (NSTEMI) myocardial infarction (principal); Z68.42 Body mass index [BMI] 45.0-49.9, adult; I10 Essential (primary) hypertension; F17.210 Nicotine dependence, cigarettes, uncomplicated; G47.33 Obstructive sleep apnea (adult) (pediatric); E78.5 Hyperlipidemia, unspecified; N40.0 Benign prostatic hyperplasia without lower urinary tract symptoms; E66.01 Morbid (severe) obesity due to excess calories; I25.110 Atherosclerotic heart disease of native coronary artery with unstable angina pectoris; Z82.49 Family history of ischemic heart disease and other diseases of the circulatory system
CPT/HCPCS: 36415; 71045; 80048; 80061; 80076; 82962; 83036; 84443; 84484; 85025; 85379; 92928; 93005; 93306; 93458; 99152; 99153; 99284; 99406; J7030; J7040; Q9957; Q9967; A4216; C1725; C1769; C1874; C1887; C1894; C8929; C9600; J1327

== ENCOUNTER → 2018-09-22 | Outpatient (CLI) | payer OTHER, SELFPAY ==
[2018-09-07 15:23] VITALS: BMI 43.9
--- NOTE | 2018-09-22 15:49 | STRESSREP_ITS ---
Stress Test Report Date: 09-22-18 Procedure: Exercise tolerance test Indications: CAD; status post non-ST segment elevation DC; status post PCI; precardiac rehabilitation Consent: Per the patient Procedure: The patient exercised on a Jeremy protocol for 6 minutes completing stage II achieving a peak heart rate of 142 bpm (85 % predicted maximal heart rate) with a peak blood pressure 138/80 mmHg and a peak MET capacity of approximately 7 MET's. The baseline ECG demonstrated sinus tachycardia. The peak exercise ECG demonstrated no obvious ECG changes. There were no cardiac dysrhythmias pretest, during exercise, or recovery. The functional capacity was considered average. The patient had no complaint of chest discomfort during exercise or recovery. The examination was discontinued secondary to dyspnea. Impression: 1. Technically adequate (percent predicted maximal heart rate greater than 85%) exercise tolerance test 2. Peak exercise ECG with demonstrated no obvious ECG changes 3. There were no cardiac dysrhythmias during exercise or recovery This note was generated with [employer] software. It may contain incorrect words, spelling, and punctuation that were not noted in checking the note before signing.
== END | disposition home or self-care (01) ==
LOC: CVS 11:37
PROVIDERS: Family Provider Family Medicine; PCP Family Medicine; Referring Provider Internal Medicine Cardiovascular Disease; Visit Provider Internal Medicine Cardiovascular Disease
DX: I25.10 Atherosclerotic heart disease of native coronary artery without angina pectoris (principal); I21.4 Non-ST elevation (NSTEMI) myocardial infarction; Z95.5 Presence of coronary angioplasty implant and graft
CPT/HCPCS: 93017

== ENCOUNTER → 2018-11-06 | Outpatient (CLI) | payer OTHER, SELFPAY ==
[2018-09-07 15:23] VITALS: BMI 43.9
[2018-11-06 10:10] LABS: AST(SGOT) 18 U/L (15-37); Alanine Aminotransfer ALT/SGPT 27 U/L (16-61); Albumin, Serum 3.5 g/dL (3.2-5.0); Alkaline Phosphatase 98 U/L (45-117); Bilirubin, Direct 0.12 mg/dL (0.00-0.30); Cholesterol 134 mg/dL (200); Globulin 4.3 g/dL (2.2-4.2); High Density Lipoprotein 36 mg/dL; Protein, Total 7.8 g/dL (6.4-8.2); Triglycerides 99 mg/dL; Very Low Density Lipoprotein 20 mg/dL (5-40)
== END | disposition home or self-care (01) ==
LOC: LAB 08:11
PROVIDERS: Family Provider Family Medicine; PCP Family Medicine; Referring Provider Internal Medicine Cardiovascular Disease; Visit Provider Internal Medicine Cardiovascular Disease
DX: E78.5 Hyperlipidemia, unspecified (principal)
CPT/HCPCS: 36415; 80061; 80076

== ENCOUNTER → 2019-02-10 08:38 | Outpatient (CLI) | payer OTHER, SELFPAY ==
[2018-12-14 10:55] VITALS: BMI 44.9
[2019-02-10 10:13] LABS: Absolute Lymphocyte Count 1.97 X10^3/uL (0.83-4.51); Absolute Neutrophil Count 5.8 X10^3/uL (2.0-7.7); Basophil# 0.06 X10^3/uL; Basophil% 0.7 % (0-1); Eosinophil# 0.32 X10^3/uL; Eosinophils% 3.5 % (0-5); Hematocrit 45.7 % (40-54); Hemoglobin 15.4 g/dL (13.0-16.5); Lymphocyte # 1.97 X10^3/ul (4.0); Lymphocyte % 21.8 % (19-41); Mean Corp Hgb Conc 33.7 g/dL (32-36); Mean Corpuscular Hgb 32.2 pg (27.0-32.0); Mean Corpuscular Volume 95.4 fL (80-94); Mean Platelet Vol. 9.9 fl (6.2-12.0); Monocyte# 0.75 X10^3/uL; Monocyte% 8.3 % (0-10); NRBC Flagged by Analyzer 0 % (0-5); Neutrophil # 5.82 X10^3/uL (2.7-7.7); Neutrophil % 64.3 % (47-70); Platelet Count 251 K/mm3 (150-450); RBC Distribution Width CV 12.4 % (11.6-14.6); RBC Distribution Width SD 43.4 fl (35.1-43.9); Red Blood Count 4.79 M/mm3 (4.6-6.2); White Blood Count 9.1 K/mm3 (4.4-11.0)
[2019-02-10 10:24] LABS: Color, Urine Yellow (Yellow); Glucose, Dipstick Normal (Normal); Ketone-Dipstick Negative (Negative); Leukocyte Esterase-Dipstick Negative /ul (Negative); Nitrite-Dipstick Negative (Negative); Occult Blood-Urine Negative /ul (Negative); Protein-Dipstick Negative (Negative); Urine Bilirubin Dipstick Negative (Negative); Urine Clarity Clear (Clear); Urine Urobilinogen Normal (Normal)
[2019-02-10 10:38] LABS: ALB/GLOB Ratio 0.9 RATIO (0.9-2.4); AST(SGOT) 21 U/L (15-37); Alanine Aminotransfer ALT/SGPT 36 U/L (16-61); Albumin, Serum 3.7 g/dL (3.2-5.0); Alkaline Phosphatase 93 U/L (45-117); Anion Gap 6 (5-15); BUN 22 mg/dL (7-18); BUN/Creat Ratio 22.7 RATIO (10-20); Calcium,Total 8.5 mg/dL (8.5-10.1); Chloride 104 mmol/L (98-107); Cholesterol 111 mg/dL (200); Creatinine, Serum 0.97 mg/dL (0.70-1.30); EST Glomerular Filtration Rate 86 mL/min (>60); Est Glom Filt Rate - Afr Amer 104 mL/min (>60); Globulin 4.1 g/dL (2.2-4.2); Glucose 99 mg/dL (74-106); High Density Lipoprotein 30 mg/dL; Potassium 3.8 mmol/L (3.5-5.1); Protein, Total 7.8 g/dL (6.4-8.2); Sodium Level 138 mmol/L (136-145); Triglycerides 84 mg/dL; Very Low Density Lipoprotein 17 mg/dL (5-40)
== END ==
PROVIDERS: Family Provider Family Medicine; PCP Family Medicine; Referring Provider Family Medicine; Visit Provider Family Medicine
DX: Z00.00 Encounter for general adult medical examination without abnormal findings (principal); E78.5 Hyperlipidemia, unspecified
CPT/HCPCS: 36415; 80053; 80061; 81002; 84153; 85025; G0103

== ENCOUNTER → 2019-10-12 | Outpatient (CLI) | payer MEDICARE, SELFPAY ==
[2019-06-16 10:56] VITALS: BMI 44.9
[2019-10-12 10:48] LABS: AST(SGOT) 27 U/L (15-37); Alanine Aminotransfer ALT/SGPT 32 U/L (16-61); Albumin, Serum 3.6 g/dL (3.2-5.0); Alkaline Phosphatase 86 U/L (45-117); Bilirubin, Direct 0.11 mg/dL (0.00-0.30); Cholesterol 133 mg/dL (200); Globulin 4.1 g/dL (2.2-4.2); High Density Lipoprotein 31 mg/dL; Protein, Total 7.7 g/dL (6.4-8.2); Triglycerides 178 mg/dL; Very Low Density Lipoprotein 36 mg/dL (5-40)
== END | disposition home or self-care (01) ==
LOC: MTLAB 07:15
PROVIDERS: PCP Family Medicine; Referring Provider Family Medicine; Visit Provider Family Medicine
DX: E78.5 Hyperlipidemia, unspecified (principal)
CPT/HCPCS: 36415; 80061; 80076

== ENCOUNTER → 2020-02-24 09:27 | Outpatient (CLI) | payer MEDICARE, SELFPAY ==
[2019-06-16 10:56] VITALS: BMI 44.9
[2020-02-24 12:13] LABS: Hematocrit 44.4 % (40-54); Hemoglobin 14.3 g/dL (13.0-16.5); Mean Corp Hgb Conc 32.2 g/dL (32-36); Mean Corpuscular Hgb 31.2 pg (27.0-32.0); Mean Corpuscular Volume 96.9 fL (80-94); Mean Platelet Vol. 10.3 fl (6.2-12.0); Platelet Count 261 K/mm3 (150-450); RBC Distribution Width SD 46.2 fl (35.1-43.9); Red Blood Count 4.58 M/mm3 (4.6-6.2)
[2020-02-24 12:29] LABS: Vitamin B12 528 pg/mL (211-911)
[2020-02-24 12:43] LABS: ALB/GLOB Ratio 0.9 RATIO (0.9-2.4); AST(SGOT) 20 U/L (15-37); Alanine Aminotransfer ALT/SGPT 33 U/L (16-61); Albumin, Serum 3.6 g/dL (3.2-5.0); Alkaline Phosphatase 85 U/L (45-117); Anion Gap 4 (5-15); BUN 20 mg/dL (7-18); BUN/Creat Ratio 20.7 RATIO (10-20); Calcium,Total 8.6 mg/dL (8.5-10.1); Chloride 110 mmol/L (98-107); Cholesterol 113 mg/dL (200); Creatinine, Serum 0.97 mg/dL (0.70-1.30); EST Glomerular Filtration Rate 86 mL/min (>60); Est Glom Filt Rate - Afr Amer 104 mL/min (>60); Glucose 100 mg/dL (74-106); High Density Lipoprotein 32 mg/dL; Iron 76 ug/dL (65-175); Magnesium 2.2 mg/dL (1.6-2.6); Potassium 4.1 mmol/L (3.5-5.1); Protein, Total 7.6 g/dL (6.4-8.2); Sodium Level 141 mmol/L (136-145); Thyroid Stim Hormone (TSH) 0.95 uIU/mL (0.358-3.74); Triglycerides 79 mg/dL; Very Low Density Lipoprotein 16 mg/dL (5-40)
[2020-02-29 14:10] LABS: Zinc, Plasma or Serum 85 ug/dL (56-134)
== END ==
PROVIDERS: PCP Family Medicine; Referring Provider Registered Nurse Nephrology; Visit Provider Registered Nurse Nephrology
DX: E66.01 Morbid (severe) obesity due to excess calories (principal); R10.84 Generalized abdominal pain; K21.9 Gastro-esophageal reflux disease without esophagitis; G47.33 Obstructive sleep apnea (adult) (pediatric); I10 Essential (primary) hypertension; E78.00 Pure hypercholesterolemia, unspecified; E61.1 Iron deficiency; Z68.43 Body mass index [BMI] 50.0-59.9, adult
CPT/HCPCS: 36415; 80053; 80061; 82306; 82607; 82746; 83540; 83735; 84425; 84443; 84630; 85027

== ENCOUNTER → 2020-04-05 05:56 | Outpatient (CLI) | payer MEDICARE, SELFPAY ==
[2020-03-17 13:42] VITALS: BMI 49.2
--- NOTE | 2020-04-05 06:00 | ECHOCS_ITS ---
Reason For Study: CAD, NSTEMI Procedure This was a 2D Doppler, Color Flow transthoracic echocardiogram. The study was technically difficult. Contrast injection was performed. Poor apical window. Exam performed in department. Left Ventricle Normal LV size. Left ventricular systolic function is normal. The estimated ejection fraction is 65 %. No evidence for diastolic dysfunction. No regional wall motion abnormalities noted. Right Ventricle Normal RV size. Normal systolic function. Atria Normal left atrium. Normal right atrium. No doppler evidence for ASD. Mitral Valve There is no mitral annular calcification. Mild mitral valve prolapse. Mild (1+) eccentric mitral valve insufficiency. Tricuspid Valve Normal tricuspid valve. Mild tricuspid valve insufficiency. Right ventricular systolic pressure estimated to be 23 mmHg. Aortic Valve Trisinus/trileaflet aortic valve. Normal aortic valve. Pulmonic Valve The pulmonic valve is not well visualized. Trivial pulmonic valve insufficiency. Great Vessels Normal sized aortic root. Pericardium/Pleural No pericardial effusion. Medication Diluted definity 7.0ml given slow IV push to enhance endocardial definition. MMode/2D Measurements & Calculations LVIDd: 5.2 cm IVSd: 1.1 cm Ao root diam: 3.7 cm LVIDs: 3.4 cm LVPWd: 1.1 cm RVDd: 4.4 cm FS: 33.3 % LAV(MOD-bp): 52.2 ml LA A4 area: 21.1 cm2 LA dimension(2D): 4.6 cm LAV(MOD-bp) Indexed: 21.8 ml/m2 LAV(MOD-sp2): 39.3 ml LAV(MOD-sp4): 54.5 ml Time Measurements MV dec time: 0.15 sec Doppler Measurements & Calculations MV E max wesley: 98.0 cm/sec Lat Peak E' Wesley: 7.6 cm/sec Med Peak E' Wesley: 7.4 cm/sec MV A max wesley: 74.3 cm/sec E/E' lat: 13.0 E/E' med: 13.2 MV E/A: 1.3 Ao V2 max: 127.1 cm/sec LV V1 max: 104.4 cm/sec PA V2 max: 147.5 cm/sec Ao max P.5 mmHg LV V1 max P.4 mmHg PI end-d wesley: 119.0 cm/sec TR max wesley: 225.6 cm/sec TR max P.4 mmHg Interpretation Summary The study was technically difficult. Contrast injection was performed. Left ventricular systolic function is normal. The estimated ejection fraction is 65 %. Mild mitral valve prolapse. Mild (1+) eccentric mitral valve insufficiency. Mild tricuspid valve insufficiency. Trivial pulmonic valve insufficiency. Right ventricular systolic pressure estimated to be 23 mmHg. No evidence for diastolic dysfunction. Ordering Physician: Nazario Calvo Referring Physician: ADRIANA HAAS Performed By: Shazia Anthony, ALEKSEY, RVT
--- NOTE | 2020-04-05 10:14 | STRESSREP_ITS ---
Stress Test Report Date: 04-05-2020 Procedure: Exercise tolerance test/imaging study Indications: CAD; PCI; preoperative cardiovascular evaluation Consent: Per the patient Procedure: The patient exercised on a Jeremy protocol for 5 minutes completing Stage I and 2 minutes of Stage II achieving a peak heart rate of 150 bpm (90% predicted maximal heart rate) with a peak blood pressure 164/70 mmHg and a peak MET capacity of 7 METs. The baseline ECG demonstrated normal sinus rhythm. The peak exercise ECG demonstrated no obvious ECG changes. There were no cardiac dysrhythmias pretest, during exercise, or recovery. The functional capacity was considered average. There was no complaint of chest discomfort during exercise or recovery. The examination was discontinued secondary to dyspnea. Impression: 1. Technically adequate (percent predicted maximal heart rate greater than 85%) exercise tolerance test 2. Peak exercise ECG with no obvious ECG changes 3. There were no cardiac dysrhythmias pretest, during exercise, or recovery 4. Nuclear images pending Myocardial perfusion imaging study: Technique: The patient was injected with 9.5 mCi of technetium 99m Cardiolite and subsequently rest SPECT Cardiolite nuclear imaging was obtained in the horizontal long, vertical long, and short axis views. The patient exercised on a Jeremy protocol for 5 minutes completing Stage I and 2 minutes of Stage II achieving a peak heart rate of 150 bpm (90% predicted maximal heart rate) with a peak blood pressure 164/70 mmHg and a peak MET capacity of 7 METs. The patient was injected with 29.1 mCi of technetium 99m Cardiolite and subsequently stress SPECT Cardiolite nuclear imaging was obtained in the horizontal long, vertical long, and short axis views. A gated Cardiolite study at peak stress was obtained. Interpretation: Rest and stress SPECT Cardiolite nuclear imaging status post realignment, normalization, and attenuation correction, demonstrates parents of body motion during image acquisition and at rest the appearance of relative uniform tracer uptake and status post stress a small area of diminished tracer uptake in the mid inferior segments. There is end systolic thickening and brightening. The gated Cardiolite study demonstrates myocardial thickening and inward wall motion. The reported LVEF is 57%. Impression: 1. Rest and stress SPECT Cardiolite nuclear imaging demonstrate the appearance of body motion during image acquisition and status post stress the appearance of a small area of diminished tracer uptake in the mid inferior segments which may be compatible with shifting soft tissue attenuation/artifact, however, a small area of stress-induced myocardial ischemia cannot necessarily be excluded. 2. The gated Cardiolite study reports an LVEF of 57%. This note was generated with [employer] software. It may contain incorrect words, spelling, and punctuation that were not noted in checking the note before signing.
== END ==
PROVIDERS: PCP Family Medicine; Referring Provider Internal Medicine Cardiovascular Disease; Visit Provider Internal Medicine Cardiovascular Disease
DX: I25.10 Atherosclerotic heart disease of native coronary artery without angina pectoris (principal); I21.4 Non-ST elevation (NSTEMI) myocardial infarction; E78.5 Hyperlipidemia, unspecified; Z95.5 Presence of coronary angioplasty implant and graft
CPT/HCPCS: 78452; 93017; 93306; A9500; Q9957; A4216; C8929

== ENCOUNTER → 2020-04-18 14:23 | Outpatient (CLI) | payer MEDICARE, SELFPAY ==
[2020-03-17 13:42] VITALS: BMI 49.2
== END ==
PROVIDERS: PCP Family Medicine; Referring Provider Family Medicine; Visit Provider Family Medicine
DX: Z20.822 Contact with and (suspected) exposure to COVID-19 (principal)
CPT/HCPCS: 87635; C9803; U0005; U0003

== ENCOUNTER 2020-04-21 07:53 | Day surgery (SDC) | payer MEDICARE, SELFPAY ==
[2020-03-17 13:42] VITALS: BMI 49.2
--- NOTE | 2020-04-11 10:57 | RAD_ITS ---
STUDY: X-RAY CHEST REASON FOR EXAM: Male, 54 years old. Chest pain, pre heart cath TECHNIQUE: PA and lateral views of the chest. COMPARISON: Comparison is made with prior examination dated 08/22/2018. FINDINGS: The lungs are clear and expanded. Scattered calcified granulomas. There is no demonstrated pleural abnormality. Normal size heart. Normal mediastinum and suresh. Normal visualized pulmonary arteries. Normal visualized aortic arch and descending thoracic aorta. There are diffuse degenerative changes of the visualized thoracic spine. Normal visualized ribs, clavicles, and shoulders. There is no demonstrated abnormality of the visualized soft tissue structures of the upper abdomen. RAD/Chest PA and Lateral IMPRESSION: Scattered calcified granulomas. No acute abnormality is seen. Electronically Signed: Kvng Diaz MD at 11:14 EST , Service support ,
[2020-04-11 11:46] LABS: Hematocrit 43.7 % (40-54); Hemoglobin 14.1 g/dL (13.0-16.5); Mean Corp Hgb Conc 32.3 g/dL (32-36); Mean Corpuscular Hgb 30.8 pg (27.0-32.0); Mean Corpuscular Volume 95.4 fL (80-94); Mean Platelet Vol. 9.8 fl (6.2-12.0); Platelet Count 282 K/mm3 (150-450); RBC Distribution Width CV 13.1 % (11.6-14.6); RBC Distribution Width SD 46.1 fl (35.1-43.9); Red Blood Count 4.58 M/mm3 (4.6-6.2); White Blood Count 8.3 K/mm3 (4.4-11.0)
[2020-04-11 11:56] LABS: Partial Thromboplast Time 23.8 Seconds (24.1-36.2); Prothrombin Time (Protime)PT. 12.8 SECONDS (11.7-14.9)
[2020-04-11 12:04] LABS: Anion Gap 4 (5-15); BUN 19 mg/dL (7-18); BUN/Creat Ratio 18.4 RATIO (10-20); Calcium,Total 8.9 mg/dL (8.5-10.1); Chloride 107 mmol/L (98-107); Creatinine, Serum 1.03 mg/dL (0.70-1.30); EST Glomerular Filtration Rate 80 mL/min (>60); Est Glom Filt Rate - Afr Amer 96 mL/min (>60); Glucose 109 mg/dL (74-106); Sodium Level 139 mmol/L (136-145)
[2020-04-20 08:41] VITALS: BMI 49.2
--- NOTE | 2020-04-21 09:20 | HP_ITS ---
HPI HPI History of Present Illness Details: This is a 54-year-old gentleman that presents here today for a cardiovascular follow-up of his history of CAD, s/p NSTEMI, s/p LAD PCI, hyperlipdemia, and hypertension. At present time he states he believes he is doing reasonably well although he has had intermittent episodes of chest tightness/pressure in the center of his chest. This can occur at rest and with activity. He has also had with walking episodes of diaphoresis. He has not had any obvious orthopnea or PND or peripheral pitting edema. There is been no near syncope or syncope. He had an ECG in the office today. He remains in sinus rhythm. He states he is being evaluated for gastric bypass surgery at [facility]. He recently had an abdominal ultrasound performed. He states there was concerns of gallbladder sludge as well as potential aortic dilatation. Intake Vital Signs 03/17/20 Height 5 ft 6 in 03/17/20 Weight: 305 lb 5 oz 03/17/20 BMI 49.2 03/17/20 BP 108/76 03/17/20 Blood Pressure Location Lt brachial 03/17/20 Position Sitting 03/17/20 Respiration 16 03/17/20 Pulse 76 03/17/20 Pulse Source Auscultation Intake Visit Reasons: F/U, CLEAR. FOR GASTRIC BYPASS Block Chopper Hand Required: No Accompanied by: Self Allergies No Known Allergies Allergy (Verified 03/17/20 13:43) Medications Lisinopril/Hydrochlorothiazide [Lisinopril-Hctz 20-25 mg Tab] 1 tab PO DAILY 08/22/18 [History Confirmed 03/17/20] Aspirin [Aspirin, Baby] 81 mg PO DAILY@0800 tab.chew 08/24/18 [Rx Confirmed 03/17/20] tamsulosin 0.4 mg capsule 0.8 mg PO DAILY cap 09/07/18 [History Confirmed 03/17/20] clopidogrel 75 mg tablet 75 mg PO DAILY #90 tab 06/16/19 [Rx Confirmed 03/17/20] metoprolol tartrate 25 mg tablet 25 mg PO BID #180 tab 06/16/19 [Rx Confirmed 03/17/20] simvastatin 80 mg tablet 80 mg PO QHS #90 tab 06/16/19 [Rx Confirmed 03/17/20] multivitamin 1 tab PO DAILY 03/17/20 [History Confirmed 03/17/20] nitroglycerin 0.4 mg sublingual tablet 0.4 mg SUBLINGUAL Q5M PRN #25 tab 03/17/20 [Rx Confirmed 03/17/20] tramadol 50 mg tablet 100 mg PO DAILY PRN tab 03/17/20 [History Confirmed 03/17/20] [facility] Medical History RAMESH (obstructive sleep apnea) (Chronic) Essential hypertension (Chronic) Atherosclerotic heart disease of viejas coronary artery without angina pectoris (Chronic) NSTEMI (non-ST elevated myocardial infarction) (Resolved) HLD (hyperlipidemia) (Chronic) Tobacco abuse (Chronic) Surgical History S/P coronary artery stent placement (Chronic ~08/22/18) History of hernia repair (Resolved) S/P right knee arthroscopy (Resolved) Family History Father Heart disease Myocardial infarction Mother Cancer Lung Brother Heart disease Myocardial infarction Social History (Updated 03/17/20 @ 14:[address] Nazario Calvo MD) Smoking Status: Current every day smoker alcohol intake: current details: occasional substance use type: does not use caffeine: Yes Type: carbonated beverages Number of servings: 1, coffee Number of servings: 1 ROS Const Const: Negative for fatigue, weakness, frequent falls, excessive sweating, weight gain or weight loss Eyes Eyes: Negative for transient loss of vision, blurry vision or change in vision ENT ENT: Negative for dizziness or balance problems Cardio Chest Pain: Yes Character: tightness Onset: at rest, exercise Location: mid sternal Duration: hours Relieving: other (takes nitro but doesnt relieve tighness) Palpitations: No Edema: Bilateral (occasional pedal) Muscle aches with walking: None Resp Respiratory: Positive for SOB with activity (baseline); negative for SOB at rest GI GI: Negative vomiting or vomiting blood/hematemesis : Negative for hematuria Musc Musc: Positive for joint pain; negative for muscle aches/ myalgia, muscle weakness or balance problems Skin Skin: Negative non-healing lesions or rash Neuro Neuro: Positive for lightheadedness (occasional bending over); negative for dizziness, orthostatic symptoms, frequent falls, weakness or blurry vision Rai Hematologic/Lymphatic: Negative for easy bleeding Endo Endo: Negative for fatigue or excessive sweating Psych Psych: Negative for anxiety or depression Allergy Allergy/Immunology: Negative for hives, Negative for rash Cardiology Exam Const Appearance: cooperative, healthy appearing, comfortable, no acute distress, well developed and well groomed Nutritional Appearance: obese Orientation: alert, awake and oriented x3 Head Head: normal to inspection, normocephalic and atraumatic Ears: hearing grossly normal bilaterally Nose: external nose normal Face and Sinus: face symmetric Mouth: moist mucous membranes Eyes Eyelids: eyelids normal Conjunctivae: conjunctivae normal Pupils: PERRL EOM: EOM intact bilaterally Neck Neck: normal visual inspection, full ROM and no JVD Carotids: normal carotid upstroke; negative bruit Neck Mass: Negative Neck mass Chest Chest inspection: normal inspection of the chest, symmetric chest movement and normal respiratory effort Auscultation: Bilateral: Clear to Auscultation Cardio Palpation: normal PMI Rate: regular rate Rhythm: regular rhythm Heart sounds: S1 normal and S2 normal; negative rub, gallop or murmur GI GI: normal to inspection, soft, bowel sounds present and obese; negative tender Neuro General: alert, awake, oriented x3 and moves all extremities Skin Skin: no rashes or lesions noted Extremities Pulses: Normal: Right Posterior Tibial Pulse, Left Posterior Tibial Pulse, Right Radial Pulse, Left Radial Pulse Lower Extremity Edema: None: Bilateral Psych Psychological: normal affect Assessment & Plan 1. Atherosclerosis of viejas coronary artery of viejas heart without angina pectoris I25.10 Plan At the present time he will continue medical therapy. He will be asked to have further evaluation which will include a transthoracic echocardiogram to further assess his left ventricular wall motion systolic function as well as an exercise tolerance test/imaging study to compare to his previous studies to evaluate his symptoms for any obvious evidence of ongoing myocardial ischemia that warrants a trip back to the cardiac catheterization laboratory. Orders Orders: 12 Lead EKG performed by [facility] Today Echo Complete Today 2. S/P coronary artery stent placement Z95.5 PTCA/KITTY to prox LAD 08/22/18 Plan He will continue evaluation care as noted above. Orders Orders: 12 Lead EKG performed by [facility] Today Echo Complete Today Nuclear Stress Test - Treadmil Today 3. Hyperlipidemia, unspecified hyperlipidemia type E78.5 Plan He did have lip labs performed in January 2020. His total cholesterol was 113 with an LDL of 65 and an HDL of 32. His triglycerides were 79. We will continue medical therapy. Orders Orders: 12 Lead EKG performed by [facility] Today Echo Complete Today Nuclear Stress Test - Treadmil Today 4. Essential hypertension I10 Plan His blood pressure appears to be well controlled at this time. He will continue medical therapy and follow-up. Orders Orders: 12 Lead EKG performed by [facility] Today Echo Complete Today Nuclear Stress Test - Treadmil Today Plan Detail Other Orders Orders: 12 Lead EKG performed by [facility] Today I21.4 Other Medications Refilled: nitroglycerin as directed for chest pain 0.4 mg sublingual Q5M PRN 25 tabs 2RF Cardiac/Chest Pain Follow Up 03/17/20 (copy of [facility] abdominal U/S report) 6 Months (PFM) Coding Level of Care Code Off vis,est,level 4 Diagnoses Atherosclerosis of viejas coronary artery of viejas heart without angina pectoris I25.10 ??[place] vs. transplanted heart: viejas heart S/P coronary artery stent placement Z95.5 Hyperlipidemia, unspecified hyperlipidemia type E78.5 ??Hyperlipidemia type: unspecified Essential hypertension I10 Coding Level of Care Code Off vis,est,level 4 Diagnoses Atherosclerosis of viejas coronary artery of viejas heart without angina pectoris I25.10 ??[place] vs. transplanted heart: viejas heart S/P coronary artery stent placement Z95.5 Hyperlipidemia, unspecified hyperlipidemia type E78.5 ??Hyperlipidemia type: unspecified Essential hypertension I10 Supplemental Info Supplemental Information Transthoracic echocardiogram: 08/22/2018 Interpretation Summary The study was technically difficult. Contrast injection was performed. Left ventricular systolic function is normal. The estimated ejection fraction is 70 %. Mild (1+) eccentric mitral valve insufficiency. Trivial tricuspid valve insufficiency. Trivial pulmonic valve insufficiency. Unable to estimate RV systolic pressure/pulmonary artery pressure due to technically difficult study. Transmitral doppler flow suggestive of impaired relaxation of left ventricle EXERCISE MYOCARDIAL PERFUSION STRESS TEST: 11/05/2013 REASON FOR EVALUATION: This is a 48-year-old man with a history of chest pain. BASELINE INFORMATION: Resting EKG demonstrates normal sinus rhythm with a rate of 75 beats per minute. Normal intervals are noted. Resting blood pressure was 124/84. STRESS TEST: The patient exercised according to the regular Jeremy protocol for a total duration of 8 minutes attaining 150 beats per minute, which is 87% of maximum predicted heart rate. The maximum workload attained was 10.1 METS. The patient maintained sinus rhythm throughout the recording. At rest, there were no ST or T-wave changes noted to suggest ischemia. At peak exercise, no ST or T-wave changes were noted to suggest ischemia. No arrhythmias were noted. The resting blood pressure was 124/84 with a peak blood pressure of 130/70. No clinical angina was noted. MYOCARDIAL PERFUSION PROTOCOL: 14.7 mCi of Sestamibi was injected. The patient exercised according to the regular Jeremy protocol for a total duration of 8 minutes. The maximum heart rate attained was 150 beats per minute, which was 87% of maximum predicted heart rate. The maximum workload attained was 10.1 METS. At peak exercise, 44.5 mCi of Sestamibi was injected. Stress images were obtained. Stress and rest images were reconstructed and compared in the short axis, vertical long, and horizontal long axes. Gated images were also obtained. PERFUSION SPECT ANALYSIS: Review of the images demonstrated normal uptake of tracer noted in all areas of the myocardium. The resting images similarly demonstrated normal uptake of tracer noted in all areas of the myocardium. No reversibility is noted to suggest ischemia. GATED SPECT ANALYSIS: The gated ejection fraction is noted to be 60%. No wall motion abnormalities are present. CONCLUSION 1. Normal exercise myocardial perfusion stress test at a high workload. 2. Preserved ejection fraction. Cardiac catheterization: 08/22/2018 CORONARY ANGIOGRAPHY DOMINANCE: Right Dominant LEFT HEART ASSESSMENT Left Ventricular Ejection Fraction: by LV Gram 60 % Normal LV wall motion Elevated Left Ventricular End Diastolic Pressure LVEDP: 17 mmHg LEFT MAIN: Angiographically normal LEFT ANTERIOR DESCENDING ARTERY: PROX LAD: Eccentric: Hazy: 50 - 75 % Stenosis CIRCUMFLEX ARTERY: Angiographically normal RIGHT CORONARY ARTERY: Angiographically normal VALVE FINDINGS: Normal Aortic Valve function Normal Mitral Valve function AORTIC ROOT: Angiographically normal PCI: 08/22/2018 CONCLUSIONS Successful PCI with Drug eluting stent and PTCA to the pLAD Labs LDL Cholesterol 65 mg/dL (0-130) 02/24/20 HDL Cholesterol 32 mg/dL (40-) L 02/24/20 Triglycerides 79 mg/dL (-199) 02/24/20 VLDL Cholesterol 16 mg/dL (5-40) 02/24/20 Diagnostics Electrocardiogram 08/24/18 Echocardiogram 08/22/18 Stress Test Nuclear Medicine 11/05/13 Stress Test 09/22/18 Cardiac Catheterization 08/22/18 Chest X-Ray 08/22/18 I have examined the patient the following changes are noted: The patient underwent evaluation with transthoracic echocardiogram on 04-05-2020. The results are noted below. Interpretation Summary The study was technically difficult. Contrast injection was performed. Left ventricular systolic function is normal. The estimated ejection fraction is 65 %. Mild mitral valve prolapse. Mild (1+) eccentric mitral valve insufficiency. Mild tricuspid valve insufficiency. Trivial pulmonic valve insufficiency. Right ventricular systolic pressure estimated to be 23 mmHg. No evidence for diastolic dysfunction. The patient underwent evaluation with an exercise tolerance test/imaging study on 04-05-2020. The results are noted below. Stress Test Report Date: 04-05-2020 Procedure: Exercise tolerance test/imaging study Indications: CAD; PCI; preoperative cardiovascular evaluation Consent: Per the patient Procedure: The patient exercised on a Jeremy protocol for 5 minutes completing Stage I and 2 minutes of Stage II achieving a peak heart rate of 150 bpm (90% predicted maximal heart rate) with a peak blood pressure 164/70 mmHg and a peak MET capacity of 7 METs. The baseline ECG demonstrated normal sinus rhythm. The peak exercise ECG demonstrated no obvious ECG changes. There were no cardiac dysrhythmias pretest, during exercise, or recovery. The functional capacity was considered average. There was no complaint of chest discomfort during exercise or recovery. The examination was discontinued secondary to dyspnea. Impression: 1. Technically adequate (percent predicted maximal heart rate greater than 85%) exercise tolerance test 2. Peak exercise ECG with no obvious ECG changes 3. There were no cardiac dysrhythmias pretest, during exercise, or recovery 4. Nuclear images pending Myocardial perfusion imaging study: Technique: The patient was injected with 9.5 mCi of technetium 99m Cardiolite and subsequently rest SPECT Cardiolite nuclear imaging was obtained in the horizontal long, vertical long, and short axis views. The patient exercised on a Jeremy protocol for 5 minutes completing Stage I and 2 minutes of Stage II achieving a peak heart rate of 150 bpm (90% predicted maximal heart rate) with a peak blood pressure 164/70 mmHg and a peak MET capacity of 7 METs. The patient was injected with 29.1 mCi of technetium 99m Cardiolite and subsequently stress SPECT Cardiolite nuclear imaging was obtained in the horizontal long, vertical long, and short axis views. A gated Cardiolite study at peak stress was obtained. Interpretation: Rest and stress SPECT Cardiolite nuclear imaging status post realignment, normalization, and attenuation correction, demonstrates parents of body motion during image acquisition and at rest the appearance of relative uniform tracer uptake and status post stress a small area of diminished tracer uptake in the mid inferior segments. There is end systolic thickening and brightening. The gated Cardiolite study demonstrates myocardial thickening and inward wall motion. The reported LVEF is 57%. Impression: 1. Rest and stress SPECT Cardiolite nuclear imaging demonstrate the appearance of body motion during image acquisition and status post stress the appearance of a small area of diminished tracer uptake in the mid inferior segments which may be compatible with shifting soft tissue attenuation/artifact, however, a small area of stress-induced myocardial ischemia cannot necessarily be excluded. 2. The gated Cardiolite study reports an LVEF of 57%. Based upon the patient's history, his objective findings, and his plans for upcoming noncardiac surgery, it was recommended the patient be considered for further evaluation with diagnostic cardiac catheterization. The procedure and risk were discussed with the patient. He was agreeable to this approach. The surgeon/proceduralist and patient have discussed in detail the risk of exposure to and/or potential harm posed by the COVID-19 virus with having a surgery/procedure at this time versus the risk of delaying the surgery/procedure. It is not possible to know either the risk of delaying the surgery or procedure or chance of getting an infection with perfect accuracy, but a joint decision was made between the patient and the surgeon/proceduralist to proceed at this time with the scheduled surgery/procedure as indicated on the consent form.
--- NOTE | 2020-04-21 10:19 | CL.D_ITS ---
Patient Name: ARIELLA SIMMONS Study Date: 04/21/2020 Performing: Nazario Calvo MD Ht: 66.14 inches 168 cm : 1965 Wt: 304.24 lbs 138 kg Age: 54 Gender: male BSA: 2.39 PROCEDURE(S) PERFORMED [id number]/LV CLINICAL PROFILE AND INDICATIONS Indications: Suspected CAD, Pre-Operative Evaluation Heart Failure: None Stress/Imaging Date: 04/05/2020 Angina Classification Anginal Classification w/in 2 Weeks: CCS III CAD Presentations: Unstable angina. CONCLUSIONS Elevated Left Ventricular End Diastolic Pressure Normal LV size, wall motion,and systolic function LVEF: by LV gram 60 % Single vessel CAD of the LAD LAD: stent: patent RECOMMENDATIONS Risk factor modification Medical therapy DESCRIPTION OF PROCEDURE The patient arrived to the procedure lab. The risks and benefits of the procedure as well as a full d escription of our services here and current unavailability of surgical backup were fully explained to the patient and/or their significant other prior to the catheterization. The Timeout was completed, verifying the correct patient and procedure. The patient's procedural site was prepped and draped in the usual fashion. Local anesthetic was given subcutaneously to right radial region with Lidocaine 2% . Using a modified Seldinger technique, arterial access was obtained via the right radial artery, a 6 Fr sheath was inserted. Left Coronary Artery selective angiography was performed in multiple views u sing a 5 Fr. JL3.5 catheter. Right Coronary Artery selective angiography was then performed in multip le views using a 5 Fr. JR 4 catheter. Left Ventriculography was performed in HOUSER projection using a 5 Fr. Pigtail catheter. LV to AO pullback pressures were then recorded.The arterial sheath was pulled and a TR Band was applied for hemostasis - 10cc air CORONARY ANGIOGRAPHY DOMINANCE: Right Dominant LEFT HEART ASSESSMENT Left Ventricular Ejection Fraction: by LV Gram 60 % Normal LV wall motion Elevated Left Ventricular End Diastolic Pressure LVEDP: 26 mmHg LEFT MAIN: Angiographically normal LEFT ANTERIOR DESCENDING ARTERY: PROX LAD: Previously placed stent is patent with mild luminal irregularities CIRCUMFLEX ARTERY: Angiographically normal RIGHT CORONARY ARTERY: Angiographically normal AORTIC ROOT: Angiographically normal COMPLICATIONS PROCEDURE MEDICATIONS Versed 50 mg IV Fentanyl 1 mcg IV Oxygen: 2 L/min via nasal cannula SUMMARY OF HEMODYNAMIC DATA Time AIR REST ECG 08:12:25 AO 81/62 (71) SA 09:15:40 LV 116/10, 29 09:31:19 LV 113/8, 09:31:25 LV 110/11, 09:32:10 LV 112/6, 09:32:17 LVp 113/6, 09:32:27 AOp 99/67 (82) 09:32:32 ECG 09:43:45 Signed By Nazario Calvo MD On 04/21/2020 10:19:07 Nazario Calvo MD
== END 2020-04-21 11:20 | disposition home or self-care (01) ==
LOC: CLSP 07:53
PROVIDERS: PCP Family Medicine; Referring Provider Internal Medicine Cardiovascular Disease; Visit Provider Internal Medicine Cardiovascular Disease
DX: I25.110 Atherosclerotic heart disease of native coronary artery with unstable angina pectoris (principal); E78.5 Hyperlipidemia, unspecified; I10 Essential (primary) hypertension; I25.2 Old myocardial infarction; F17.200 Nicotine dependence, unspecified, uncomplicated; R07.9 Chest pain, unspecified; E66.9 Obesity, unspecified; Z68.42 Body mass index [BMI] 45.0-49.9, adult; Z95.5 Presence of coronary angioplasty implant and graft; Z79.82 Long term (current) use of aspirin; Z79.899 Other long term (current) drug therapy
CPT/HCPCS: 36415; 71046; 80048; 85027; 85610; 85730; 93458; 99152; 99153; J7040; Q9967; C1769; C1894

== ENCOUNTER → 2020-07-12 10:34 | Outpatient (CLI) | payer MEDICARE, SELFPAY ==
[2020-04-20 08:41] VITALS: BMI 49.2
[2020-07-18 20:20] LABS: Cotinine Screen Blood <1.0 ng/mL (.); Nicotine Blood <1.0 ng/mL (.)
== END ==
PROVIDERS: PCP Family Medicine; Referring Provider Registered Nurse Nephrology; Visit Provider Registered Nurse Nephrology
DX: Z01.89 Encounter for other specified special examinations (principal)
CPT/HCPCS: 36415; 80323

== ENCOUNTER → 2020-09-02 10:42 | Outpatient (CLI) | payer MEDICARE, SELFPAY ==
[2020-04-20 08:41] VITALS: BMI 49.2
[2020-09-02 11:25] LABS: Hemoglobin 13.1 g/dL (13.0-16.5); Mean Corp Hgb Conc 31.2 g/dL (32-36); Mean Corpuscular Volume 96.3 fL (80-94); Mean Platelet Vol. 10.1 fl (6.2-12.0); Platelet Count 244 K/mm3 (150-450); RBC Distribution Width CV 13.7 % (11.6-14.6); RBC Distribution Width SD 48.6 fl (35.1-43.9); Red Blood Count 4.36 M/mm3 (4.6-6.2); White Blood Count 5.4 K/mm3 (4.4-11.0)
[2020-09-02 12:01] LABS: ALB/GLOB Ratio 0.9 RATIO (0.9-2.4); AST(SGOT) 23 U/L (15-37); Alanine Aminotransfer ALT/SGPT 32 U/L (16-61); Albumin, Serum 3.5 g/dL (3.2-5.0); Alkaline Phosphatase 89 U/L (45-117); Anion Gap 3 (5-15); BUN 11 mg/dL (7-18); BUN/Creat Ratio 12.2 RATIO (10-20); Calcium,Total 8.6 mg/dL (8.5-10.1); Chloride 110 mmol/L (98-107); EST Glomerular Filtration Rate 93 mL/min (>60); Est Glom Filt Rate - Afr Amer 112 mL/min (>60); Ferritin 221 ng/mL (26-388); Globulin 3.7 g/dL (2.2-4.2); Glucose 90 mg/dL (74-106); Iron 71 ug/dL (65-175); Magnesium 2.1 mg/dL (1.6-2.6); Potassium 4.2 mmol/L (3.5-5.1); Protein, Total 7.2 g/dL (6.4-8.2); Sodium Level 142 mmol/L (136-145)
[2020-09-04 15:39] LABS: Vitamin B12 497 pg/mL (211-911)
[2020-09-06 15:05] LABS: Zinc, Plasma or Serum 92 ug/dL (44-115)
== END ==
PROVIDERS: PCP Family Medicine
DX: G47.33 Obstructive sleep apnea (adult) (pediatric) (principal); I10 Essential (primary) hypertension; E78.00 Pure hypercholesterolemia, unspecified; E61.7 Deficiency of multiple nutrient elements; N52.39 Other and unspecified postprocedural erectile dysfunction; E61.1 Iron deficiency; E66.01 Morbid (severe) obesity due to excess calories; Z68.42 Body mass index [BMI] 45.0-49.9, adult; Z99.89 Dependence on other enabling machines and devices
CPT/HCPCS: 36415; 80053; 82607; 82728; 82746; 83540; 83735; 84630; 85027

== ENCOUNTER 2020-11-12 19:38 | Emergency (ER) | payer MEDICARE, SELFPAY ==
[2020-11-12 19:39] VITALS: BP 111/73; PULSE 93; RESP 17; TEMP 37.1; O2SAT 96; BMI 39.9
--- NOTE | 2020-11-12 19:41 | RAD_ITS ---
EXAM: XR LEFT RIBS AND AP CHEST, 3 OR MORE VIEWS : 1965 CLINICAL INDICATION: fall, rleft shoulder and rib pain TECHNIQUE: Frontal and oblique views of the left ribs and frontal view of the chest. This report was created using [employer] report generation technology. COMPARISON: None. FINDINGS: LUNGS AND PLEURAL SPACES: Unremarkable. No consolidation or edema. No pneumothorax. No effusion. HEART: Unremarkable. Cardiac silhouette not enlarged. MEDIASTINUM: Central airways and mediastinal contour are unremarkable. BONES/JOINTS: Unremarkable. No evidence of displaced rib fractures. RAD/Ribs Uni Min 3V w/PA Chest IMPRESSION: Negative chest and left ribs series. at 2038 Reported and signed by: Kostas Olivia MD Electronically Signed: Kostas Olivia MD at 20:37 EDT Tel , Service support ,
--- NOTE | 2020-11-12 19:41 | RAD_ITS ---
INDICATION: fall EXAMINATION/TECHNIQUE: X-RAY - LEFT XR Shoulder Min 2 Views 4 VIEWS COMPARISON: None. FINDINGS: Degenerative changes acromioclavicular joint and inferior acromial spur. Intact clavicle and acromion and normal AC joint alignment. Glenohumeral joint alignment is normal. There is no fracture or focal osseous lesion. Cortical cystic changes on the greater tuberosity suggesting chronic enthesopathy. Bony thorax is within normal limits. Visualized lung and soft tissues of the shoulder are normal. RAD/Shoulder min 2 Views IMPRESSION: Chronic degenerative changes with no evidence of traumatic osseous injury. Electronically Signed: Hans Marquis DO at 21:07 EDT Tel , Service support ,
[2020-11-12] MEDS: HYDROcodone Bitartrate/Apap 5/325 Tablet PO (22:02)
--- NOTE | 2020-11-12 22:08 | EDS_ITS ---
HPI History of Present Illness Chief Complaint: Fall Narrative Narrative: 45-year-old male presenting with left shoulder and left rib pain. He states he had mechanical fall where he tripped over his own feet and fell with his left arm tucked into the left side. Patient states that after he fell he had some pain in the left shoulder and left ribs and over the course of the day this is worsened. Currently states it hurts to move his shoulder in any direction. He denies shortness of breath but does complain of left-sided rib pain. He has no bruising that he notes. [facility] Medical History Abnormal stress test Atherosclerotic heart disease of [place] coronary artery without angina pectoris Chest pain Essential hypertension History of left heart catheterization (LHC) (~04/21/20) HLD (hyperlipidemia) NSTEMI (non-ST elevated myocardial infarction) RAMESH (obstructive sleep apnea) Tobacco abuse Home Medications aspirin 81 mg PO DAILY@0800 tab.chew 08/24/18 [Rx Last Taken 04/21/20] tamsulosin 0.4 mg capsule 0.8 mg PO DAILY cap 09/07/18 [History Last Taken Unknown] multivitamin 1 tab PO DAILY 03/17/20 [History Last Taken Unknown] nitroglycerin 0.4 mg sublingual tablet 0.4 mg SUBLINGUAL Q5M PRN #25 tab 03/17/20 [Rx Last Taken Unknown] tramadol 50 mg tablet 100 mg PO DAILY PRN tab 03/17/20 [History Last Taken Unknown] clopidogrel 75 mg tablet 75 mg PO DAILY #90 tab 04/12/20 [Rx Last Taken 04/21/20] metoprolol tartrate 25 mg tablet 25 mg PO BID #180 tab 04/12/20 [Rx Last Taken 04/21/20] simvastatin 80 mg tablet 80 mg PO QHS #90 tab 06/22/20 [Rx Last Taken Unknown] hydrocodone-acetaminophen 1 tab PO Q6H PRN PRN 3 Days #10 tablet 11/12/20 [Rx Last Taken Unknown] Allergy/AdvReac Type Severity Reaction Status Date / Time No Known Allergies Allergy Verified 11/12/20 19:38 Family History Father Heart disease Myocardial infarction Mother Cancer Lung Brother Heart disease Myocardial infarction Surgical History History of gastric bypass History of hernia repair S/P coronary artery stent placement (~08/22/18) S/P right knee arthroscopy Social History Smoking Status: Current some day smoker tobacco type: cigarettes and e- cigarettes alcohol intake: current details: occasional substance use type: does not use caffeine: Yes Type: carbonated beverages Number of servings: 1 and coffee Number of servings: 1 ROS ROS ED Constitutional Constitutional ED: Denies chills or fever(s) Eyes Eyes: Denies blurry vision or change in vision ENT ENT ED: Denies rhinorrhea or sore throat Cardiovascular Cardiovascular: Reports other Details: Left-sided rib pain. ; Denies palpitations Respiratory/Chest Respiratory/Chest: Denies cough or dyspnea Gastrointestinal Gastrointestinal: Denies abdominal pain or nausea Genitourinary Genitourinary ED: Denies dysuria or hematuria Musculoskeletal Musculoskeletal: Reports other Details: Left shoulder pain Integumentary Denies Abrasions or rash Neurologic Neurologic: Denies headache(s) or paresthesias EXAM Physical Exam Const Vital Signs: 11/12/20 19:39 11/12/20 20:55 11/12/20 22:13 Temperature 98.8 F Temperature Source Temporal Pulse Rate 93 Respiratory Rate 17 16 Respiratory Effort Normal Non-Labored Respiratory Depth Normal Respiratory Pattern Normal Blood Pressure 111/73 Blood Pressure Mean 85 Pulse Ox 96 Oxygen Delivery Method Room Air Positive well nourished General Appearance ED: NAD HEENT atraumatic Eyes PERRL and EOMs intact bilaterally Chest Wall Chest Narrative: Tenderness to palpation of her left ribs in the anterior clavicular line. No crepitance or deformity. This is approximately ribs 5 and 6. No bruising noted. Resp normal respiratory effort and clear to auscultation bilaterally Cardio regular rhythm Rate: regular rate Extremity Extremity Narrative: Tenderness to palpation of the left proximal shoulder. Patient has difficulty with range of motion in any direction. Sensation is intact. He localized the pain to the left anterior shoulder. Psych mental status grossly normal and thought process normal Skin no rashes or lesions noted MDM MDM MDM Narrative Medical decision making narrative: Patient given [place] for pain. I did obtain a left shoulder x-ray as well as left rib series and these were both negative for fracture or subluxation on my interpretation. Patient was given a sling for comfort but is counseled to come out of this and range is much as possible. Patient is counseled to ice his left shoulder and his ribs as needed. He will be given [place] for pain for home. I did give him orthopedic follow-up given his limited range of motion and concern for possibility of rotator cuff tear. Impression: 1. Left shoulder strain 2. Left rib contusion 3. Mechanical fall Radiography Diagnostic Testing: Radiology Impression Ribs w/Chest X-Ray 11/12/20 19:41 IMPRESSION: Negative chest and left ribs series. at 8 Reported and signed by: Kostas Olivia MD Electronically Signed: Kostas Olivia MD at 20:37 EDT Tel , Service support , Shoulder X-Ray 11/12/20 19:41 IMPRESSION: Chronic degenerative changes with no evidence of traumatic osseous injury. Electronically Signed: Hans Marquis DO at 21:07 EDT Tel , Service support , Discharge Plan Triage Chief Complaint: Fall ED Provider: Giovany Gaviria Dx/Rx/DC Orders Instructions: ED Shoulder Sprain, ED Rib Contusion or Minor Fracture Prescriptions: New hydrocodone-acetaminophen 5-325 mg tablet 1 tab PO Q6H PRN PRN (Reason: Pain) 3 Days Qty: 10 RF: 0 No Action multivitamin Tablet 1 tab PO DAILY RF: 0 nitroglycerin 0.4 mg tablet, sublingual 0.4 mg sublingual Q5M PRN (Reason: Cardiac/Chest Pain) Qty: 25 RF: 2 aspirin 81 MG tablet,chewable 81 mg PO DAILY@0800 RF: 0 tamsulosin 0.4 mg capsule 0.8 mg PO DAILY RF: 0 tramadol 50 mg tablet 100 mg PO DAILY PRN (Reason: pain) RF: 0 metoprolol tartrate 25 mg tablet 25 mg PO BID Qty: 180 RF: 3 clopidogrel [Plavix] 75 mg tablet 75 mg PO DAILY Qty: 90 RF: 3 simvastatin 80 mg tablet 80 mg PO QHS Qty: 90 RF: 3 Primary Care Provider: Roger Curtis Referrals: Roger Curtis MD [Primary Care Provider] - Delfino Estrada MD [STAFF PHYSICIAN] - 3-5 Days Disposition Disposition: Home, Self Care Discharge Date/Time: 11/12/20 22:14
[2020-11-12 22:13] VITALS: RESP 16
== END 2020-11-12 22:14 | disposition home or self-care (01) ==
PROVIDERS: Emergency Provider Student in an Organized Health Care Education/Training Program; PCP Family Medicine
DX: S46.912A Strain of unspecified muscle, fascia and tendon at shoulder and upper arm level, left arm, initial encounter (principal); S20.212A Contusion of left front wall of thorax, initial encounter; I25.10 Atherosclerotic heart disease of native coronary artery without angina pectoris; F17.210 Nicotine dependence, cigarettes, uncomplicated; I25.2 Old myocardial infarction; I10 Essential (primary) hypertension; E78.5 Hyperlipidemia, unspecified; Z79.82 Long term (current) use of aspirin; W01.0XXA Fall on same level from slipping, tripping and stumbling without subsequent striking against object, initial encounter; Z79.899 Other long term (current) drug therapy
CPT/HCPCS: 71101; 73030; 99283

== ENCOUNTER → 2020-11-21 11:04 | Outpatient (CLI) | payer MEDICARE, SELFPAY ==
[2020-11-21 12:18] LABS: Hematocrit 43.7 % (40-54); Hemoglobin 14.2 g/dL (13.0-16.5); Mean Corp Hgb Conc 32.5 g/dL (32-36); Mean Corpuscular Hgb 31.1 pg (27.0-32.0); Mean Corpuscular Volume 95.6 fL (80-94); Mean Platelet Vol. 9.7 fl (6.2-12.0); Platelet Count 276 K/mm3 (150-450); RBC Distribution Width CV 12.9 % (11.6-14.6); RBC Distribution Width SD 45.5 fl (35.1-43.9); Red Blood Count 4.57 M/mm3 (4.6-6.2); White Blood Count 6.4 K/mm3 (4.4-11.0)
[2020-11-21 12:56] LABS: Vitamin B12 1295 pg/mL (211-911)
[2020-11-21 13:15] LABS: ALB/GLOB Ratio 0.8 RATIO (0.9-2.4); AST(SGOT) 21 U/L (15-37); Alanine Aminotransfer ALT/SGPT 24 U/L (16-61); Albumin, Serum 3.5 g/dL (3.2-5.0); Alkaline Phosphatase 107 U/L (45-117); Anion Gap 7 (5-15); BUN 16 mg/dL (7-18); BUN/Creat Ratio 21.7 RATIO (10-20); Calcium,Total 9.1 mg/dL (8.5-10.1); Chloride 109 mmol/L (98-107); Creatinine, Serum 0.74 mg/dL (0.70-1.30); EST Glomerular Filtration Rate 116 mL/min (>60); Est Glom Filt Rate - Afr Amer 141 mL/min (>60); Ferritin 229 ng/mL (26-388); Globulin 4.2 g/dL (2.2-4.2); Glucose 109 mg/dL (74-106); Iron 89 ug/dL (65-175); Magnesium 2.3 mg/dL (1.6-2.6); Potassium 3.9 mmol/L (3.5-5.1); Protein, Total 7.7 g/dL (6.4-8.2); Sodium Level 142 mmol/L (136-145)
[2020-11-26 16:08] LABS: Zinc, Plasma or Serum 78 ug/dL (44-115)
== END ==
PROVIDERS: PCP Family Medicine
DX: G47.33 Obstructive sleep apnea (adult) (pediatric) (principal); I10 Essential (primary) hypertension; E78.00 Pure hypercholesterolemia, unspecified; E61.7 Deficiency of multiple nutrient elements; E66.09 Other obesity due to excess calories; Z68.34 Body mass index [BMI] 34.0-34.9, adult; Z99.89 Dependence on other enabling machines and devices
CPT/HCPCS: 36415; 80053; 82607; 82728; 82746; 83540; 83735; 84630; 85027

== ENCOUNTER → 2021-02-09 08:24 | Outpatient (CLI) | payer MEDICARE, SELFPAY ==
[2021-02-09 10:02] LABS: Hemoglobin 14.8 g/dL (13.0-16.5); Mean Corp Hgb Conc 32.9 g/dL (32-36); Mean Corpuscular Hgb 31.4 pg (27.0-32.0); Mean Corpuscular Volume 95.5 fL (80-94); Mean Platelet Vol. 9.9 fl (6.2-12.0); Platelet Count 234 K/mm3 (150-450); RBC Distribution Width CV 12.8 % (11.6-14.6); RBC Distribution Width SD 45.1 fl (35.1-43.9); Red Blood Count 4.71 M/mm3 (4.6-6.2); White Blood Count 6.2 K/mm3 (4.4-11.0)
[2021-02-09 10:18] LABS: Vitamin B12 1950 pg/mL (211-911); Vitamin D,25 Hydroxy 64.8 ng/mL
[2021-02-09 10:33] LABS: AST(SGOT) 17 U/L (15-37); Alanine Aminotransfer ALT/SGPT 30 U/L (16-61); Albumin, Serum 3.6 g/dL (3.2-5.0); Alkaline Phosphatase 93 U/L (45-117); Anion Gap 6 (5-15); BUN 15 mg/dL (7-18); BUN/Creat Ratio 19.7 RATIO (10-20); Calcium,Total 8.8 mg/dL (8.5-10.1); Chloride 110 mmol/L (98-107); Cholesterol 121 mg/dL (200); Creatinine, Serum 0.76 mg/dL (0.70-1.30); EST Glomerular Filtration Rate 112 mL/min (>60); Est Glom Filt Rate - Afr Amer 136 mL/min (>60); Ferritin 140 ng/mL (26-388); Globulin 3.7 g/dL (2.2-4.2); Glucose 91 mg/dL (74-106); High Density Lipoprotein 38 mg/dL; Iron 90 ug/dL (65-175); Magnesium 2.4 mg/dL (1.6-2.6); Potassium 3.8 mmol/L (3.5-5.1); Protein, Total 7.3 g/dL (6.4-8.2); Sodium Level 143 mmol/L (136-145); Triglycerides 83 mg/dL; Very Low Density Lipoprotein 17 mg/dL (5-40)
[2021-02-14 22:34] LABS: Zinc, Plasma or Serum 80 ug/dL (44-115)
== END ==
PROVIDERS: PCP Family Medicine; Referring Provider Registered Nurse Nephrology; Visit Provider Registered Nurse Nephrology
DX: E78.00 Pure hypercholesterolemia, unspecified (principal); G47.33 Obstructive sleep apnea (adult) (pediatric); Z99.89 Dependence on other enabling machines and devices; E61.7 Deficiency of multiple nutrient elements; E61.1 Iron deficiency; E55.9 Vitamin D deficiency, unspecified; E53.9 Vitamin B deficiency, unspecified; E66.01 Morbid (severe) obesity due to excess calories; Z68.41 Body mass index [BMI] 40.0-44.9, adult
CPT/HCPCS: 36415; 80053; 80061; 82306; 82607; 82728; 82746; 83540; 83735; 84630; 85027

== ENCOUNTER → 2022-11-29 | Outpatient (CLI) | payer MEDICARE, SELFPAY ==
--- NOTE | 2022-11-29 12:43 | CT_ITS ---
INDICATION: PRE-OP. LISA KNEE PROTOCOL EXAMINATION/TECHNIQUE: X-RAY - LEFT CT Lower Extremity W/O Contrast Injection COMPARISON: Knee radiographs 09/17/2016. FINDINGS: Serial CT axial images through the hip, knee, and ankle, with coronal and sagittal reformatted series. BONES: Normal anatomic alignment without evidence of fracture or subluxation. No concerning bony lesion or abnormal sclerosis to suggest lesion. JOINTS: Moderate tricompartment degenerative change of the knee with joint space narrowing and osteophyte formation.. SOFT TISSUES: Inferior calcaneal and Achilles enthesophytes.. CT/Extremity Lower without Contra IMPRESSION: Degenerative change as above. Electronically Signed: Alexis Cardona MD at 7:03 EDT ,
== END | disposition home or self-care (01) ==
LOC: CT 12:42
PROVIDERS: PCP Family Medicine; Referring Provider Orthopaedic Surgery; Visit Provider Orthopaedic Surgery
DX: M17.12 Unilateral primary osteoarthritis, left knee (principal)
CPT/HCPCS: 73700

== ENCOUNTER 2022-12-16 05:27 | Day surgery (SDC) | payer MEDICARE, SELFPAY ==
--- NOTE | 2022-11-26 09:22 | EKG12_ITS ---
Test Reason : PRE OP Blood Pressure : / mmHG Vent. Rate : 089 BPM Atrial Rate : 089 BPM P-R Int : 164 ms QRS Dur : 096 ms QT Int : 342 ms P-R-T Axes : 008 012 011 degrees QTc Int : 416 ms Normal sinus rhythm Normal ECG Confirmed by SAIRA THOMPSON, ALISHA ([id number]), market editor MANGO PINZON ([id number]) on 11/26/2022 2:12:07 PM Referred By: Hans Burciaga Confirmed By:ALISHA CHÁVEZ MD
[2022-11-26 10:23] LABS: Absolute Lymphocyte Count 1.32 X10^3/uL (0.83-4.51); Absolute Neutrophil Count 4.5 X10^3/uL (2.0-7.7); Basophil# 0.06 X10^3/uL; Basophil% 0.9 % (0-1); Eosinophil# 0.18 X10^3/uL; Eosinophils% 2.7 % (0-5); Hematocrit 44.3 % (40-54); Hemoglobin 14.3 g/dL (13.0-16.5); Lymphocyte # 1.32 X10^3/ul (0.83-4.51); Lymphocyte % 20.1 % (19-41); Mean Corp Hgb Conc 32.3 g/dL (32-36); Mean Corpuscular Hgb 31.1 pg (27.0-32.0); Mean Corpuscular Volume 96.3 fL (80-94); Mean Platelet Vol. 9.8 fl (6.2-12.0); Monocyte% 7.6 % (0-10); NRBC Flagged by Analyzer 0 % (0-5); Neutrophil # 4.47 X10^3/uL (2.7-7.7); Neutrophil % 67.9 % (47-70); Platelet Count 280 K/mm3 (150-450); RBC Distribution Width CV 12.8 % (11.6-14.6); RBC Distribution Width SD 44.9 fl (35.1-43.9); White Blood Count 6.6 K/mm3 (4.4-11.0)
[2022-11-26 10:30] LABS: Prothrombin Time (Protime)PT. 12.8 SECONDS (11.7-14.9)
[2022-11-26 11:04] LABS: Albumin, Serum 3.6 g/dL (3.2-5.0); Anion Gap 5 (5-15); BUN 14 mg/dL (7-18); BUN/Creat Ratio 16.7 RATIO (10-20); Calcium,Total 8.5 mg/dL (8.5-10.1); Chloride 112 mmol/L (98-107); Creatinine, Serum 0.84 mg/dL (0.70-1.30); EST Glomerular Filtration Rate 100 mL/min (>60); Est Glom Filt Rate - Afr Amer 121 mL/min (>60); Glucose 96 mg/dL (74-106); Potassium 3.9 mmol/L (3.5-5.1); Sodium Level 142 mmol/L (136-145)
[2022-11-26 11:14] LABS: Hemoglobin A1c 4.6 % (3.8-5.6)
[2022-11-26 11:15] LABS: Magnesium 2.4 mg/dL (1.6-2.6)
[2022-12-16] VITALS (12 sets, daily range): BP systolic 81–109; BP diastolic 41–70; PULSE 77–87; RESP 14–20; TEMP 36.2–37.2; O2SAT 95–100; BMI 39.3
[2022-12-16] MEDS: Magnesium 1 GM over 15 mins IV (06:00)
[2022-12-16] MEDS: Lactated Ringers 1,000 ML 15 ML IV (06:24)
[2022-12-16] MEDS: Acetaminophen 500 MG Tablet 1000 MG PO ×2 (06:25→14:49)
[2022-12-16] MEDS: Gabapentin 600 MG Tablet PO (06:25)
[2022-12-16 06:49] LABS: Bedside Glucose 83 mg/dL (74-106)
--- NOTE | 2022-12-16 07:30 | KNEE_PTH ---
PATIENT: ARIELLA SIMMONS LOC: [facility] [place] U#:[id number] AGE/SX: 57/M ROOM: RE12/16/[address]: Dr. Hans Burciaga DO : 1965 BED: DIS: 12/16/2022 SPEC #: [id number] RECD: 12/16/22 11:11 STATUS: GUS RESenait #: [id number] BRIANNA: 12/16/22 07:[address]: Hans Burciaga DEPT: SURGICAL PATHOLOGY RECD BY: Alex Patel ENTERED: 12/16/22 11:50 SP TYPE: TOTAL KNEE OTHR DR: Dr. Roger Curtis MD Tissues: Knee, NOS Procedures: Decalcification bone/plaque Surgery Specimen Level IV HEADER OPERATION: ERAS, total knee replacement robotic arm assist PRE-OP DIAGNOSIS: Unilateral primary osteoarthritis left knee TISSUE SUBMITTED: Left knee bone and tissue MICROSCOPIC DIAGNOSIS Bone and tissue of left knee, total knee resection: Severe degenerative joint disease. Mild synovial hyperplasia. AM:trevor 12/19/2022 MICROSCOPIC DESCRIPTION Slides are reviewed. GROSS DESCRIPTION Received is one container designated left knee bone and tissue. The specimen consists of multiple fragments of powers-yellow bone measuring in aggregate 12.0 x 9.0 x 4.0 cm. Also in the specimen container are multiple fragments of yellow-white soft tissue measuring in aggregate 9.0 x 7.0 x 2.5 cm. A number of bony fragments contain articular surfaces consistent with tibial plateau and femoral condyle and displaying prominent osteophyte formation and bone erosion. Surgical Asst sections are submitted in two cassettes as follows: 1 - soft tissue, 2 - bone after decalcification. / SJ:trevor 12/16/2022 TC:5 [facility]: [id number]
[2022-12-16] MEDS: Cefazolin 2 GM in 0.9% Normal Saline (100mL Bag) 100 ML IV (07:36)
--- NOTE | 2022-12-16 07:45 | SUR.PREOP ---
DR. MOJICA MADE AWARE OF PATIENT FALLING OUT OF BED THIS MORNING AND HITTING HIS HEAD. HE HAS A SMALL BUMP ON HIS HEAD. NO LOC. NO OTHER INJURIES.
[2022-12-16] MEDS: JPS (Morphine 10mg/ml) OPERA.SITE (09:11)
--- NOTE | 2022-12-16 09:19 | PCM.OPRPT ---
Report of Operation Date of Procedure: 12/16/22 Pre-Operative Diagnosis: OA left knee Post-Operative Diagnosis: same Surgery/Procedure Performed:: Left TKR Description of Surgical Findings:: Report of Operation Date of Procedure: 12/16/22 Preoperative Diagnosis: [ left ] knee primary osteoarthritis Postoperative Diagnosis: [left ] knee primary osteoarthritis Operation: Robotic Assisted Knee Total Arthroplasty, [ left ] knee Surgeon: Dr Hans Burciaga DO Herbicide Service Sales Representative: Tj Hayward PA-C Anesthesia: spinal Anesthesiologist: Akira Guerra M.D. Findings: Stable knee with good patella tracking Specimen(s): Bony cuts Complications: No intraoperative complications Estimated Blood Loss: 20 cc IV Fluids: 1000 cc crystalloid Implants Used: 1. [employer]ooja Triathlon CR press-fit size 6 femur 2. [place] Triathlon size 6 tibia 3. 35 mm patella 4. 9 mm CS polyethylene Brief History Operative Indications: [ (57 y/o male) ] with history of [left ] knee osteoarthrosis with radiographic findings with loss of joint space, osteophyte formation and subchondral sclerosis. Failed conservative measures as mentioned in the H&P. Discussion of total knee arthroplasty as well as risk and benefits were discussed with the patient including but not limited to blood loss, DVTs, PEs, neurovascular damage, general risk of anesthesia including loss of life, and stiffness or instability were also discussed with the patient. Patient demonstrated understanding and was able to sign informed consent. Procedure: On the date of procedure, patient's [ left ] lower extremity was marked in the preoperative area. The patient was then taken back to the operating room where that patient was placed on the table in the supine position. All bony prominences were identified and well-padded. Anesthesia assumed control of the C-spine and airway throughout the remainder of the procedure. A tourniquet was placed on the [left ] upper thigh and the leg was prepped in a sterile fashion. The surgeon then scrubbed at this time. Upon reentering the room, the [left ] lower extremity was draped in a standard orthopedic fashion. A timeout was then called and everyone agreed upon the side, the site, the procedure to be performed, patient's identity and antibiotics given. Esmarch bandage was used to exsanguinate the extremity and the tourniquet was placed up to 250 mmHg with the knee in flexion. A midline skin incision was made and a sharp dissection was taken down through skin, subcutaneous tissue and fat. The standard medial parapatellar incision was made and the patella was subluxed laterally. An appropriate deep MCL release was done and the fat pad was resected. Our attention was then directed to the patella. The patella was everted and a flat resection was made. The knee was then flexed up and 2 femoral pins were placed inside the incision and 2 tibial pins were placed outside the incision in the medial tibia bicortically. Once this was completed, the 2 checkpoints in the femur and tibia were placed. Knee was then flexed up and the bony landmarks were registered. Once the was completed, the knee taken through range of motion and manually stressed allowing us to plan for an appropriate tibial cut. The robotic arm was brought into the field sterilely and checkpoint and saw were registered. Based on the patient's deformity, the tibial cut was made in [ 2 degrees varus ]. At this time, the tensioner was then placed in the joint and ligament tension was checked at 90 degrees and full extension. Based on the patient's ligamentous tension, appropriate adjustments were made to the operative plan and ligament releases were done. Once we were happy with our operative plan with balanced flexion and extension gaps, our attention was directed to the femur. The robot was brought into the field sterilely and registered. Posterior condylar cuts, anterior chamfer cuts and anterior cuts were appropriately made for a [size 6 ] femur. When these were completed, the saws were switched out in the distal femoral and posterior chamfer cuts were made. Protecting the soft tissue throughout this time. A [size 6 ] base plate was selected. The knee was flexed to 90 degrees and soft tissues and posterior osteophytes were removed from the joint. 40 cc of the periarticular injection was injected into the posterior medial corner of the joint. The appropriate trials were then placed on the femur and tibia. A trial polyethylene was trialed to ensure proper balancing and stability of the knee. The appropriate tibial internal rotation was then marked with a bovie. Our attention was then directed to the patella. The lug holes were drilled and the patella trial was placed. Patellar tracking was checked and deemed appropriate. Once we were happy, lug holes were drilled for the femur and trial components were removed. The tibia was subluxed and pinned into place and the keel was punched and drilled appropriately. Final components were verified and opened. The wound was copiously irrigated with normal saline. The components were impacted into place with the tibia, femur and finally the patella. The trial poly component was placed and the knee was placed in full extension. The tracking, alignment and balance were verified and a [ 9 mm CS ] polyethylene component was placed. Once the final components were placed an Irrisept lavage was performed and the wound was copiously irrigated with normal saline solution and the periarticular injection was given. the wound was closed in a layer-grant fashion using #1 vicryl interrupted sutures for the arthrotomy, 2-0 interrupted vicryl suture for the subcuticular layer and mi for final skin closure. A sterile compressive dressing was then placed. The patient was then awakened from anesthesia, transferred to the rweslaco and transferred to the PACU for recovery. My physician assistant project engineer was a vital part of this case. He was important in appropriate retraction during the case, and protection of soft tissues during bony cuts. His intimate knowledge of the case and my steps aided in safe and expedient completion of the procedure as well as appropriate position of the leg during the case. He was also vital in assisting with closure under my direct supervision. Due to the complexity of this case, robotic arm was used to assist in the surgery to improve accuracy and clinical outcomes. Post-op Plan: DVT ppx; ASA 81 mg BID, thigh high compression stockings Follow up: in office in 2 weeks for wound check PT: to start POD #0 at hospital, outpatient PT should be arranged. Preoperative antibiotic: Ancef 2 grams IV Hans Burciaga DO Surgeon: Hans Burciaga duplex trimmer: Tj Hayward Type of Anesthesia: Spinal Anesthesiologist: Akira Guerra Estimated Blood Loss (mL): 20 cc Fluids Replaced: 1000 cc crystalloid Admit VTE Documentation VTE Present on Admission: No VTE Mechan Device Prophylaxis: SCD's and Thigh High BASSAM Hose VTE Pharm Prophylaxis ordered?: Yes
--- NOTE | 2022-12-16 10:00 | RAD_ITS ---
STUDY: X-RAY - LEFT KNEE REASON FOR EXAM: Male, 57 years old. Post op -- in PACU. TECHNIQUE: 2 views of the left knee. COMPARISON: Left knee radiographs dated 09/17/2016. FINDINGS: There are new postoperative changes related to left total knee arthroplasty with patellar resurfacing. There is a vertical staple line along the anterior aspect of the knee. There is gas in the patellofemoral joint recess and anterior soft tissues, compatible with recent surgery. The orthopedic hardware components are intact. There is no periprosthetic fracture. Normal proximal tibiofibular articulation. RAD/Knee 1 or 2 Views IMPRESSION: New postoperative changes related to left total knee arthroplasty. Electronically Signed: Onel Christianson MD at 15:46 EDT ,
[2022-12-16] MEDS: Lactated Ringers 1,000 ML 999 ML IV (10:15)
[2022-12-16] MEDS: Scopolamine 1mg/72hr Patch 1 PATCH TD (10:30)
[2022-12-16] MEDS: Lactated Ringers 1,000 ML 125 ML IV (11:06)
[2022-12-16] MEDS: oxyCODONE 5 MG Tablet PO (14:31)
== END 2022-12-16 15:33 | disposition home or self-care (01) ==
LOC: SDC 05:29 → AC 05:30
PROVIDERS: Anesthesiology; PCP Family Medicine; Referring Provider Orthopaedic Surgery; Visit Provider Orthopaedic Surgery
PROC: 0SRD0JZ Replacement of Left Knee Joint with Synthetic Substitute, Open Approach (ICD-10-PCS; CPT 27447; principal; 2022-12-16 07:00)
DX: M17.12 Unilateral primary osteoarthritis, left knee (principal); I73.9 Peripheral vascular disease, unspecified; E66.01 Morbid (severe) obesity due to excess calories; Z68.41 Body mass index [BMI] 40.0-44.9, adult; I25.10 Atherosclerotic heart disease of native coronary artery without angina pectoris; I10 Essential (primary) hypertension; E78.00 Pure hypercholesterolemia, unspecified; G47.33 Obstructive sleep apnea (adult) (pediatric); Z79.82 Long term (current) use of aspirin; Z79.02 Long term (current) use of antithrombotics/antiplatelets; Z79.85 Long-term (current) use of injectable non-insulin antidiabetic drugs; Z79.899 Other long term (current) drug therapy; Z95.5 Presence of coronary angioplasty implant and graft; Z87.891 Personal history of nicotine dependence
CPT/HCPCS: 27447; 64447; 36415; 73560; 80048; 82040; 82962; 83036; 83735; 85025; 85610; 85730; 87081; 88305; 88311; 93005; 97162; C1776; J7120; J2405; J3475